=== PATIENT | female | born 1945 | race African-American/Black ===

== ENCOUNTER 2017-11-27 01:54 | Emergency (ER) | payer OTHER ==
[~2017-11-27] VITALS: Ht 157.5 cm; Wt 77.0 kg
[2017-11-27 07:25] VITALS: BP 120/70
== END 2017-11-27 07:26 | disposition home or self-care (01) ==
LOC: ER 01:54
DX: E11.649 Type 2 diabetes mellitus with hypoglycemia without coma (principal); I10 Essential (primary) hypertension; H40.9 Unspecified glaucoma; Z88.0 Allergy status to penicillin; Z79.84 Long term (current) use of oral hypoglycemic drugs
CPT/HCPCS: 36415; 82947; 82962; 99284

== ENCOUNTER 2017-12-06 06:05 | Observation (INO) | payer OTHER ==
[~2017-12-06] VITALS: Ht 157.5 cm; Wt 76.5 kg
[2017-12-06] MEDS ORDERED: DEXTROSE 50% WATER 50ML SYRINGE IV ONE (07:00)
[2017-12-06] MEDS ORDERED: DEXT 5%/0.45% NACL 1000ML 1,000 ML IV ONE (07:00)
[2017-12-06 07:51] LABS: BASOPHILS % 0.4 % (0.0-2.0); EOSINOPHILS % 0.6 % (0.0-5.0); HEMATOCRIT. 34.6 % (36.0-48.0); HEMOGLOBIN. 11.2 g/dL (12.0-16.0); MEAN CORPUSCULAR HEMOGLOBIN 28.3 pg (28.0-32.0); MEAN CORPUSCULAR VOLUME 87.5 fL (81.0-99.0); MEAN PLATELET VOLUME 7.6 fl (7.4-10.4); MONOCYTES % 7.5 % (2.0-8.0); NEUTROPHILS % 74.5 % (40.0-76.0); PLATELET 204 x1000/uL (130-400); RED BLOOD CELL COUNT 3.95 mill/uL (4.2-5.4); RED CELL DISTRIBUTION WIDTH 13.8 % (11.6-14.6)
[2017-12-06 07:54] LABS: PROTHROMBIN TIME 10.5 sec (9.4-11.6)
[2017-12-06 08:47] LABS: CLARITY URINE CLEAR (CLEAR); COLOR URINE YELLOW (YELLOW); KETONES URINE NEGATIVE (NEGATIVE); LEUKOCYTE ESTERASE URINE NEGATIVE (NEGATIVE); NITRITE URINE NEGATIVE (NEGATIVE); OCCULT BLOOD URINE 1+ (NEGATIVE); PROTEIN URINE 1+ (NEGATIVE); SPECIFIC GRAVITY URINE 1.009 (1.005-1.030); UROBILINOGEN URINE 0.2 E.U./dL (0.2-1.0)
[2017-12-06 09:26] LABS: *AMPHETAMINES SCREEN URINE NEGATIVE (NEGATIVE); *BARBITURATES SCREEN URINE NEGATIVE (NEGATIVE); *BENZODIAZEPINES SCREEN URINE NEGATIVE (NEGATIVE); *COCAINE SCREEN URINE NEGATIVE (NEGATIVE); METHADONE URINE SCREEN NEGATIVE (NEGATIVE); OPIATES URINE SCREEN NEGATIVE (NEGATIVE)
[2017-12-06 09:27] LABS: CANNABINOID URINE SCREEN NEGATIVE (NEGATIVE); PHENCYCLIDINE URINE SCREEN NEGATIVE (NEGATIVE)
[2017-12-06 16:00] VITALS: BP 145/52
[2017-12-06 17:35] VITALS: BP 145/52
[2017-12-06] MEDS ORDERED: LINA5TAB MT (17:45)
[2017-12-06] MEDS ORDERED: ESTR0.3T3 MT (17:45)
[2017-12-06] MEDS ORDERED: GLIM4TAB2 MT (17:45)
[2017-12-06] MEDS ORDERED: TIMO15DR12 LEFTEYE (17:47)
[2017-12-06] MEDS ORDERED: LATA2.5D2 LEFTEYE (17:50)
[2017-12-06] MEDS ORDERED: CLONIDINE 0.1MG TABLET PO PRN (18:45)
[2017-12-06] MEDS ORDERED: ACETAMINOPHEN 325MG TABLET PO PRN (18:45)
[2017-12-06] MEDS ORDERED: ONDANSETRON HCL 4MG/2ML VIAL IV PRN (18:45)
[2017-12-06] MEDS ORDERED: HYDROCODONE/ACETAMINOPHEN 5/325MG TABLET PO PRN (18:45)
[2017-12-06] MEDS ORDERED: IPRATROPIUM/ALBUTEROL 0.5-3(2.5)MG/3ML NEB INH PRN (18:45)
[2017-12-06] MEDS ORDERED: SODIUM CHLORIDE 0.9% 1,000 ML IV SCH (19:15)
[2017-12-06 20:00] VITALS: BP 162/57
[2017-12-06] MEDS ORDERED: LATANOPROST 0.005% OPHTH DROPS 2.5ML LEFTEYE SCH (21:00)
[2017-12-06 21:44] LABS: CREATINE KINASE MB FRACTION 2.8 ng/mL (0.5-3.6)
[2017-12-07] VITALS: BP 137/57
[2017-12-07 04:00] VITALS: BP 135/47
[2017-12-07 07:22] LABS: BASOPHILS % 0.5 % (0.0-2.0); HEMATOCRIT. 33.5 % (36.0-48.0); HEMOGLOBIN. 11.2 g/dL (12.0-16.0); LYMPHOCYTES % 27.1 % (20.0-50.0); MEAN CORPUSCULAR VOLUME 86.5 fL (81.0-99.0); MEAN PLATELET VOLUME 7.7 fl (7.4-10.4); MONOCYTES % 7.7 % (2.0-8.0); NEUTROPHILS % 63.7 % (40.0-76.0); PLATELET 220 x1000/uL (130-400); RED BLOOD CELL COUNT 3.87 mill/uL (4.2-5.4); RED CELL DISTRIBUTION WIDTH 13.7 % (11.6-14.6)
[2017-12-07 07:38] LABS: CHLORIDE 110 mEq/L (98-107)
[2017-12-07 07:45] LABS: HDL CHOLESTEROL 71 mg/dL (40-59); LDL CHOLESTEROL 60 mg/dL (5-100)
[2017-12-07 07:47] LABS: T4 FREE 1.22 ng/dL (0.76-1.46)
[2017-12-07 08:00] VITALS: BP 138/50
[2017-12-07] MEDS ORDERED: TIMOLOL MALEATE 0.5% OPHTH DROPS 5ML LEFTEYE SCH (09:00)
[2017-12-07 12:00] VITALS: BP 166/67
[2017-12-07 15:48] VITALS: BP 166/67
[2017-12-07 16:00] VITALS: BP 154/58
== END 2017-12-07 16:45 | disposition home or self-care (01) ==
LOC: ER 06:05 → 5WST 07:53 → INTOOBSV 07:53 → EDBEDREQTM 07:56 → EDBEDREQ 07:56 → ENRESERV 15:40
PROVIDERS: ADMIT Internal Medicine; ATTEND Internal Medicine
DX: E16.2 Hypoglycemia, unspecified (principal); D64.9 Anemia, unspecified; E03.9 Hypothyroidism, unspecified; E11.649 Type 2 diabetes mellitus with hypoglycemia without coma; E11.21 Type 2 diabetes mellitus with diabetic nephropathy; H40.9 Unspecified glaucoma; I10 Essential (primary) hypertension; Z87.891 Personal history of nicotine dependence; M19.90 Unspecified osteoarthritis, unspecified site; N17.9 Acute kidney failure, unspecified
CPT/HCPCS: 36415; 70450; 71045; 80048; 80053; 80061; 80305; 81003; 82550; 82553; 82947; 82962; 83036; 83605; 83880; 84439; 84443; 84484; 85025; 85610; 93005; 93306; 93970; 96361; 96374; 99285; G0378; J3490; J7030; 96376

== ENCOUNTER 2021-08-23 19:25 | Inpatient (IN) | payer BC, MEDICARE, OTHER ==
[~2021-08-23] VITALS: Ht 165.1 cm; Wt 81.2 kg
[~2021-08-23 19:25] MED LIST: ESTR0.3T3 MT; GLIM4TAB36 MT; LATA2.5D14 LEFTEYE; TIMO15DR12 LEFTEYE
[2021-08-23 20:04] LABS: BASOPHILS % 0.6 % (0.0-2.0); EOSINOPHILS % 0.2 % (0.0-5.0); HEMATOCRIT. 38.5 % (36.0-48.0); HEMOGLOBIN. 12.7 g/dL (12.0-16.0); LYMPHOCYTES % 17.4 % (20.0-50.0); MEAN CORPUSCULAR HEMOGLOBIN 29.2 pg (28.0-32.0); MEAN CORPUSCULAR VOLUME 88.2 fL (81.0-99.0); MONOCYTES % 13.3 % (2.0-8.0); NEUTROPHILS % 68.5 % (40.0-76.0); PLATELET 150 x1000/uL (130-400); RED BLOOD CELL COUNT 4.36 mill/uL (4.2-5.4); RED CELL DISTRIBUTION WIDTH 14.1 % (11.6-14.6)
[2021-08-23 20:08] LABS: CHLORIDE 103 mEq/L (98-107)
[2021-08-23] MEDS ORDERED: ASPIRIN 325MG TABLET PO ONE (21:00)
[2021-08-23] MEDS ORDERED: SODIUM CHLORIDE 0.9% 500 ML IV ONE (22:00)
[2021-08-24] MEDS ORDERED: GUAIFENESIN 200MG/10ML SUGAR FREE UDC PO PRN (10:15)
[2021-08-24] MEDS ORDERED: DOCUSATE SODIUM 100MG CAPSULE PO PRN (10:15)
[2021-08-24] MEDS ORDERED: DIPHENHYDRAMINE 50MG/ML VIAL IV PRN (10:15)
[2021-08-24] MEDS ORDERED: LORAZEPAM 0.5MG TABLET PO PRN (10:15)
[2021-08-24] MEDS ORDERED: ONDANSETRON HCL 4MG/2ML INJ IV PRN (10:15)
[2021-08-24] MEDS ORDERED: CLONIDINE 0.1MG TABLET PO PRN (10:15)
[2021-08-24] MEDS ORDERED: IPRATROPIUM/ALBUTEROL 0.5-3(2.5)MG/3ML NEB NEB PRN (10:15)
[2021-08-24] MEDS ORDERED: ACETAMINOPHEN 650MG SUPP PR PRN (10:15)
[2021-08-24] MEDS ORDERED: HYDROCODONE/ACETAMINOPHEN 5/325MG TABLET PO PRN (10:15)
[2021-08-24] MEDS ORDERED: NA PHOS,M-B/NA PHOS,DI-BA ENEMA 118ML PR PRN (10:15)
[2021-08-24] MEDS ORDERED: MAGNESIUM/ALUMINUM HYDROXIDE/SIMETHICONE 30ML UDC PO PRN (10:15)
[2021-08-24] MEDS ORDERED: LEVOFLOXACIN 500MG PREMIX 100 ML IV SCH (10:15)
[2021-08-24] MEDS ORDERED: DEXTROSE 50% WATER 50ML SYRINGE IV PRN (10:15)
[2021-08-24] MEDS ORDERED: ACETAMINOPHEN 325MG TABLET PO PRN (10:15)
[2021-08-24] MEDS ORDERED: LEVOFLOXACIN 750MG PREMIX 150 ML IV NR (11:00)
[2021-08-24] MEDS ORDERED: NALOXONE HCL 0.4MG/ML VIAL IV PRN (11:00)
[2021-08-24 11:11] LABS: BG BASE EXCESS -3.4 mmol/L (-2.0-2.0); BG CARBOXYHEMOGLOBIN 0.1 % (0.5-1.5); BG DEOXYHEMOGLOBIN 4.9 % (0.0-5.0); BG HCO3 ACT 19.8 mmol/L (22.0-26.0); BG METHEMOGLOBIN 0.3 % (0.0-1.5); BG OXYGEN SATURATION 95.1 % (92.0-98.5); BG OXYHEMOGLOBIN 94.7 % (94.0-97.0); BG PH 7.424 (7.350-7.450); BG PO2 76.2 mmHg (75.0-100.0); BG SAMPLE SITE LEFT RADIAL; BG TOTAL HEMOGLOBIN 14.2 g/dL (12.0-18.0); BG VENT MODE ROOM AIR
[2021-08-24 11:15] LABS: HEMATOCRIT. 38.9 % (36.0-48.0); HEMOGLOBIN. 13.2 g/dL (12.0-16.0); MEAN CORPUSCULAR HEMOGLOBIN 29.9 pg (28.0-32.0); MEAN CORPUSCULAR VOLUME 88.2 fL (81.0-99.0); RED BLOOD CELL COUNT 4.41 mill/uL (4.2-5.4); RED CELL DISTRIBUTION WIDTH 14.2 % (11.6-14.6)
[2021-08-24] MEDS: DEXAMETHASONE 10 MG/ML VIAL IV SCH (11:18)
[2021-08-24] MEDS: SODIUM CHLORIDE 0.9% 1,000 ML IV SCH (11:18)
[2021-08-24 11:25] LABS: CLARITY URINE CLEAR (CLEAR); COLOR URINE YELLOW (YELLOW); KETONES URINE NEGATIVE (NEGATIVE); LEUKOCYTE ESTERASE URINE NEGATIVE (NEGATIVE); NITRITE URINE POSITIVE (NEGATIVE); OCCULT BLOOD URINE 3+ (NEGATIVE); PH URINE 5.5 (4.5-8.0); PROTEIN URINE 3+ (NEGATIVE); SPECIFIC GRAVITY URINE 1.012 (1.005-1.030); UROBILINOGEN URINE 0.2 E.U./dL (0.2-1.0)
[2021-08-24] MEDS: BLOOD SUGAR DIAGNOSTIC STRIP TEST SCH ×3 (11:39→22:16)
[2021-08-24 11:48] LABS: *AMPHETAMINES SCREEN URINE NEGATIVE (NEGATIVE)
[2021-08-24 11:49] LABS: *BARBITURATES SCREEN URINE NEGATIVE (NEGATIVE); *BENZODIAZEPINES SCREEN URINE NEGATIVE (NEGATIVE); *COCAINE SCREEN URINE NEGATIVE (NEGATIVE); METHADONE URINE SCREEN NEGATIVE (NEGATIVE); OPIATES URINE SCREEN NEGATIVE (NEGATIVE); PHENCYCLIDINE URINE SCREEN NEGATIVE (NEGATIVE)
[2021-08-24 11:50] LABS: CANNABINOID URINE SCREEN NEGATIVE (NEGATIVE)
[2021-08-24] MEDS: INSULIN LISPRO 100 UNITS/ML SUBCUT SCH ×3 (12:00→22:15)
[2021-08-24 12:03] LABS: INR 0.9; PROTHROMBIN TIME 10.2 sec (9.6-11.0)
[2021-08-24] MEDS: ENOXAPARIN 30MG/0.3ML SYR SUBCUT SCH (12:32)
[2021-08-24] MEDS: ALBUTEROL 6.7GM HFA INHALER ORI SCH ×2 (12:58→18:27)
[2021-08-24 13:37] LABS: PLATELET 180 x1000/uL (130-400)
[2021-08-24 13:44] LABS: PLATELET ESTIMATE NORMAL
[2021-08-24 17:48] LABS: CREATINE KINASE MB FRACTION 14.7 ng/mL (0.5-3.6)
[2021-08-24] MEDS ORDERED: SODIUM CHLORIDE 0.9% 500 ML IV ONE (22:00)
[2021-08-24] MEDS: FAMOTIDINE 20MG TABLET PO SCH (22:15)
[2021-08-25] MEDS: SODIUM CHLORIDE 0.9% 1,000 ML IV SCH ×2 (03:10→11:47)
[2021-08-25 06:11] LABS: CHLORIDE 113 mEq/L (98-107)
[2021-08-25 06:21] LABS: LDL CHOLESTEROL 67 mg/dL (5-100)
[2021-08-25 06:23] LABS: HDL CHOLESTEROL 37 mg/dL (40-59)
[2021-08-25] MEDS: BLOOD SUGAR DIAGNOSTIC STRIP TEST SCH ×4 (06:30→21:00)
[2021-08-25] MEDS: INSULIN LISPRO 100 UNITS/ML SUBCUT SCH ×4 (07:00→23:05)
[2021-08-25 07:07] LABS: BASOPHILS % 0.2 % (0.0-2.0); HEMATOCRIT. 33.8 % (36.0-48.0); HEMOGLOBIN. 11.2 g/dL (12.0-16.0); LYMPHOCYTES % 8.9 % (20.0-50.0); MEAN CORPUSCULAR HEMOGLOBIN 29.3 pg (28.0-32.0); MEAN CORPUSCULAR VOLUME 88.1 fL (81.0-99.0); MEAN PLATELET VOLUME 8.1 fl (7.4-10.4); MONOCYTES % 9.1 % (2.0-8.0); NEUTROPHILS % 81.8 % (40.0-76.0); PLATELET 170 x1000/uL (130-400); RED BLOOD CELL COUNT 3.84 mill/uL (4.2-5.4); RED CELL DISTRIBUTION WIDTH 14.1 % (11.6-14.6)
[2021-08-25] MEDS: DEXAMETHASONE 10 MG/ML VIAL IV SCH (08:46)
[2021-08-25] MEDS: ASPIRIN 81MG EC TABLET PO SCH (08:47)
[2021-08-25] MEDS: ALBUTEROL 6.7GM HFA INHALER ORI SCH ×5 (08:59→17:19)
[2021-08-25 11:07] VITALS: BP 138/58
[2021-08-25] MEDS: ENOXAPARIN 30MG/0.3ML SYR SUBCUT SCH (12:07)
[2021-08-25 12:30] VITALS: BP 138/58
[2021-08-25 16:00] VITALS: BP 140/56
[2021-08-25 20:00] VITALS: BP 134/74
[2021-08-25] MEDS: FAMOTIDINE 20MG TABLET PO SCH (23:03)
[2021-08-26 04:00] VITALS: BP 146/56
[2021-08-26] MEDS: BLOOD SUGAR DIAGNOSTIC STRIP TEST SCH ×2 (06:31→12:20)
[2021-08-26] MEDS: INSULIN LISPRO 100 UNITS/ML SUBCUT SCH ×2 (06:38→12:20)
[2021-08-26 08:00] VITALS: BP 135/58
[2021-08-26] MEDS: DEXAMETHASONE 10 MG/ML VIAL IV SCH (08:56)
[2021-08-26] MEDS: ASPIRIN 81MG EC TABLET PO SCH (08:56)
[2021-08-26 09:06] LABS: HEMATOCRIT. 33.8 % (36.0-48.0); HEMOGLOBIN. 11.3 g/dL (12.0-16.0); MEAN CORPUSCULAR HEMOGLOBIN 29.4 pg (28.0-32.0); MEAN CORPUSCULAR VOLUME 88.2 fL (81.0-99.0); MEAN PLATELET VOLUME 7.8 fl (7.4-10.4); PLATELET 195 x1000/uL (130-400); RED BLOOD CELL COUNT 3.83 mill/uL (4.2-5.4)
[2021-08-26] MEDS ORDERED: LEVOFLOXACIN 500MG PREMIX 100 ML IV SCH (11:00)
[2021-08-26 12:00] VITALS: BP 132/65
[2021-08-26] MEDS: ENOXAPARIN 30MG/0.3ML SYR SUBCUT SCH (12:19)
[2021-08-26] MEDS: ALBUTEROL 6.7GM HFA INHALER ORI SCH ×2 (12:20→12:22)
[2021-08-26] MEDS: SODIUM CHLORIDE 0.9% 1,000 ML IV SCH (12:21)
[2021-08-26 14:17] VITALS: BP 132/65
[2021-08-26] MEDS ORDERED: METOPROLOL TARTRATE 25MG TABLET PO SCH (21:00)
[2021-08-27 08:38] LABS: PLATELET ESTIMATE NORMAL
[2021-08-27] MEDS ORDERED: LEVOFLOXACIN 750MG PREMIX 150 ML IV SCH (22:00)
== END 2021-08-26 16:00 | disposition home or self-care (01) | DRG 177 ==
LOC: ER 19:25 → MICUSO 21:44 → EDBEDREQ 21:44 → 7EST 08-25 11:30
PROVIDERS: ADMIT Internal Medicine; ATTEND Internal Medicine
DX: U07.1 COVID-19 (principal); G93.41 Metabolic encephalopathy; J12.82 Pneumonia due to coronavirus disease 2019; I21.4 Non-ST elevation (NSTEMI) myocardial infarction; N39.0 Urinary tract infection, site not specified; N17.9 Acute kidney failure, unspecified; I13.0 Hypertensive heart and chronic kidney disease with heart failure and stage 1 through stage 4 chronic kidney disease, or unspecified chronic kidney disease; M62.82 Rhabdomyolysis; I50.32 Chronic diastolic (congestive) heart failure; E11.22 Type 2 diabetes mellitus with diabetic chronic kidney disease; N18.9 Chronic kidney disease, unspecified; R62.7 Adult failure to thrive; I44.0 Atrioventricular block, first degree; Z96.659 Presence of unspecified artificial knee joint; Z96.641 Presence of right artificial hip joint; Z68.29 Body mass index [BMI] 29.0-29.9, adult
CPT/HCPCS: 36415; 36600; 71045; 72170; 76770; 80048; 80053; 80061; 80305; 81003; 82375; 82550; 82553; 82728; 82805; 82962; 83605; 83615; 83735; 83880; 84145; 84443; 84484; 85025; 86140; 87426; 93005; 93970; 97162; 97535; 99291; J1100; J1650; J1815; J1956; J7030; J7040

== ENCOUNTER 2022-03-31 20:57 | Inpatient (IN) | payer BC, MEDICARE ==
[~2022-03-31] VITALS: Ht 160 cm; Wt 99.8 kg
[2022-03-31] MEDS ORDERED: KETOROLAC 30MG/ML VIAL IV STA (22:01)
[2022-03-31] MEDS ORDERED: SODIUM CHLORIDE 0.9% 1,000 ML IV ONE (22:15)
[2022-03-31 23:27] LABS: HEMATOCRIT. 35.1 % (36.0-48.0); HEMOGLOBIN. 11.5 g/dL (12.0-16.0); MEAN CORPUSCULAR VOLUME 88.5 fL (81.0-99.0); MEAN PLATELET VOLUME 7.9 fl (7.4-10.4); PLATELET 150 x1000/uL (130-400); RED BLOOD CELL COUNT 3.97 mill/uL (4.2-5.4); RED CELL DISTRIBUTION WIDTH 14.4 % (11.6-14.6)
[2022-03-31 23:34] LABS: CHLORIDE 105 mEq/L (98-107)
[2022-04-01] MEDS ORDERED: KETOROLAC 30MG/ML VIAL IV NR (01:15)
[2022-04-01 03:19] LABS: PLATELET ESTIMATE NORMAL
[2022-04-01] MEDS ORDERED: ONDANSETRON HCL 4MG/2ML INJ IV PRN (08:30)
[2022-04-01] MEDS ORDERED: HYDROCODONE/ACETAMINOPHEN 5/325MG TABLET PO PRN (08:30)
[2022-04-01] MEDS ORDERED: DEXTROSE 50% WATER 50ML SYRINGE IV PRN (08:30)
[2022-04-01] MEDS ORDERED: NALOXONE HCL 0.4MG/ML VIAL IV PRN (09:15)
[2022-04-01] MEDS: BLOOD SUGAR DIAGNOSTIC STRIP TEST SCH ×4 (09:59→21:00)
[2022-04-01 12:52] LABS: CLARITY URINE TURBID (CLEAR); COLOR URINE YELLOW (YELLOW); KETONES URINE NEGATIVE (NEGATIVE); LEUKOCYTE ESTERASE URINE 3+ (NEGATIVE); NITRITE URINE NEGATIVE (NEGATIVE); OCCULT BLOOD URINE 3+ (NEGATIVE); PH URINE 5.5 (4.5-8.0); PROTEIN URINE 2+ (NEGATIVE); SPECIFIC GRAVITY URINE 1.013 (1.005-1.030); UROBILINOGEN URINE 0.2 E.U./dL (0.2-1.0)
[2022-04-01] MEDS: ASPIRIN 81MG TABLET PO SCH (13:01)
[2022-04-01] MEDS: INSULIN LISPRO 100 UNITS/ML SUBCUT SCH ×3 (13:02→21:00)
[2022-04-01 16:00] VITALS: BP 96/60
[2022-04-01 16:43] VITALS: BP 96/60
[2022-04-01] MEDS ORDERED: METO100T16 PO (16:59)
[2022-04-01] MEDS ORDERED: ALD2525 MT (16:59)
[2022-04-01] MEDS ORDERED: ASPI-1497 PO (16:59)
[2022-04-01] MEDS ORDERED: LEVO125T8 PO (16:59)
[2022-04-01] MEDS ORDERED: ATOR20TA MT (16:59)
[2022-04-01] MEDS ORDERED: AMLO10TA4 MT (16:59)
[2022-04-01 20:00] VITALS: BP 118/51
[2022-04-01] MEDS: CEFTRIAXONE 1,000 MG in DEXTROSE 5% WATER 50 ML IV SCH (22:00)
[2022-04-02 05:05] VITALS: BP 119/58
[2022-04-02 07:09] LABS: BASOPHILS % 0.5 % (0.0-2.0); EOSINOPHILS % 0.5 % (0.0-5.0); HEMATOCRIT. 31.1 % (36.0-48.0); HEMOGLOBIN. 10.3 g/dL (12.0-16.0); LYMPHOCYTES % 10.8 % (20.0-50.0); MEAN CORPUSCULAR HEMOGLOBIN 29.3 pg (28.0-32.0); MEAN CORPUSCULAR VOLUME 88.1 fL (81.0-99.0); MEAN PLATELET VOLUME 8.5 fl (7.4-10.4); MONOCYTES % 13.6 % (2.0-8.0); NEUTROPHILS % 74.6 % (40.0-76.0); PLATELET 161 x1000/uL (130-400); RED BLOOD CELL COUNT 3.53 mill/uL (4.2-5.4); RED CELL DISTRIBUTION WIDTH 14.5 % (11.6-14.6)
[2022-04-02] MEDS: INSULIN LISPRO 100 UNITS/ML SUBCUT SCH ×4 (07:57→20:40)
[2022-04-02] MEDS: BLOOD SUGAR DIAGNOSTIC STRIP TEST SCH ×4 (07:57→20:07)
[2022-04-02 08:00] VITALS: BP 135/57
[2022-04-02] MEDS ORDERED: ASPIRIN 81MG EC TABLET PO SCH (09:00)
[2022-04-02] MEDS: ASPIRIN 81MG TABLET PO SCH (09:08)
[2022-04-02] MEDS: AMLODIPINE 5MG TABLET PO SCH (09:08)
[2022-04-02 12:00] VITALS: BP 128/76
[2022-04-02] MEDS: SODIUM CHLORIDE 0.9% 1,000 ML IV SCH (12:47)
[2022-04-02 16:00] VITALS: BP 118/50
[2022-04-02 20:00] VITALS: BP 134/52
[2022-04-02] MEDS: CEFTRIAXONE 1,000 MG in DEXTROSE 5% WATER 50 ML IV SCH (20:37)
[2022-04-03] VITALS: BP 130/50
[2022-04-03 04:00] VITALS: BP 144/61
[2022-04-03] MEDS: BLOOD SUGAR DIAGNOSTIC STRIP TEST SCH ×4 (07:45→20:05)
[2022-04-03] MEDS ORDERED: REGADENOSON 0.4 MG/5 ML IV NR (07:45)
[2022-04-03] MEDS: INSULIN LISPRO 100 UNITS/ML SUBCUT SCH ×4 (07:45→20:06)
[2022-04-03 08:00] VITALS: BP_SYST 118; BP_SYST 119; BP_SYST 121; BP_DIAS 54; BP_DIAS 56; BP_DIAS 58
[2022-04-03 08:05] LABS: BASOPHILS % 0.5 % (0.0-2.0); EOSINOPHILS % 0.6 % (0.0-5.0); HEMATOCRIT. 30.4 % (36.0-48.0); HEMOGLOBIN. 10.1 g/dL (12.0-16.0); LYMPHOCYTES % 12.8 % (20.0-50.0); MEAN CORPUSCULAR HEMOGLOBIN 29.3 pg (28.0-32.0); MEAN CORPUSCULAR VOLUME 88.6 fL (81.0-99.0); MEAN PLATELET VOLUME 8.8 fl (7.4-10.4); MONOCYTES % 11.8 % (2.0-8.0); NEUTROPHILS % 74.3 % (40.0-76.0); PLATELET 160 x1000/uL (130-400); RED BLOOD CELL COUNT 3.43 mill/uL (4.2-5.4); RED CELL DISTRIBUTION WIDTH 14.6 % (11.6-14.6)
[2022-04-03 08:12] LABS: CHLORIDE 106 mEq/L (98-107)
[2022-04-03 08:24] LABS: PHOSPHORUS 3.3 mg/dL (2.5-4.9)
[2022-04-03] MEDS: LEVOTHYROXINE SODIUM 125MCG TABLET PO SCH (08:30)
[2022-04-03] MEDS: SODIUM CHLORIDE 0.9% 1,000 ML IV SCH (08:30)
[2022-04-03] MEDS: AMLODIPINE 5MG TABLET PO SCH (08:30)
[2022-04-03] MEDS: ASPIRIN 81MG EC TABLET PO SCH (08:30)
[2022-04-03 12:00] VITALS: BP 136/53
[2022-04-03 16:00] VITALS: BP 132/52
[2022-04-03 20:00] VITALS: BP 136/55
[2022-04-03] MEDS: CEFTRIAXONE 1,000 MG in DEXTROSE 5% WATER 50 ML IV SCH (21:05)
[2022-04-04] VITALS: BP 134/58
[2022-04-04 04:00] VITALS: BP 144/57
[2022-04-04] MEDS: SODIUM CHLORIDE 0.9% 1,000 ML IV SCH (05:22)
[2022-04-04 06:20] LABS: BASOPHILS % 0.6 % (0.0-2.0); EOSINOPHILS % 0.4 % (0.0-5.0); HEMATOCRIT. 30.9 % (36.0-48.0); HEMOGLOBIN. 10.4 g/dL (12.0-16.0); LYMPHOCYTES % 16.2 % (20.0-50.0); MEAN CORPUSCULAR HEMOGLOBIN 29.3 pg (28.0-32.0); MEAN CORPUSCULAR VOLUME 87.5 fL (81.0-99.0); MEAN PLATELET VOLUME 8.6 fl (7.4-10.4); MONOCYTES % 8.6 % (2.0-8.0); NEUTROPHILS % 74.2 % (40.0-76.0); PLATELET 180 x1000/uL (130-400); RED BLOOD CELL COUNT 3.53 mill/uL (4.2-5.4)
[2022-04-04] MEDS: BLOOD SUGAR DIAGNOSTIC STRIP TEST SCH ×4 (07:40→21:20)
[2022-04-04] MEDS: LEVOTHYROXINE SODIUM 125MCG TABLET PO SCH (07:40)
[2022-04-04 08:00] VITALS: BP 130/62
[2022-04-04] MEDS: INSULIN LISPRO 100 UNITS/ML SUBCUT SCH ×4 (08:05→21:00)
[2022-04-04] MEDS: AMLODIPINE 5MG TABLET PO SCH (09:00)
[2022-04-04] MEDS: ASPIRIN 81MG EC TABLET PO SCH (09:00)
[2022-04-04] MEDS: SODIUM CHLORIDE 0.45% 1,000 ML IV SCH (10:45)
[2022-04-04 12:00] VITALS: BP_SYST 131; BP_SYST 140; BP_SYST 146; BP_DIAS 58; BP_DIAS 59
[2022-04-04] MEDS ORDERED: REGADENOSON 0.4 MG/5 ML IV ONE (12:24)
[2022-04-04 16:00] VITALS: BP 143/56
[2022-04-04 20:00] VITALS: BP 145/60
[2022-04-04] MEDS: CEFTRIAXONE 1,000 MG in DEXTROSE 5% WATER 50 ML IV SCH (21:22)
[2022-04-04] MEDS: RISPERIDONE 0.5MG TABLET PO SCH (21:22)
[2022-04-05] VITALS: BP 136/53
[2022-04-05 04:00] VITALS: BP 125/48
[2022-04-05] MEDS: SODIUM CHLORIDE 0.45% 1,000 ML IV SCH ×2 (04:44→12:51)
[2022-04-05] MEDS: BLOOD SUGAR DIAGNOSTIC STRIP TEST SCH ×4 (05:43→20:42)
[2022-04-05] MEDS: INSULIN LISPRO 100 UNITS/ML SUBCUT SCH ×4 (05:43→20:42)
[2022-04-05 08:00] VITALS: BP_SYST 132; BP_SYST 133; BP_DIAS 52; BP_DIAS 65
[2022-04-05] MEDS: RISPERIDONE 0.5MG TABLET PO SCH ×2 (08:12→21:21)
[2022-04-05] MEDS: LEVOTHYROXINE SODIUM 125MCG TABLET PO SCH (08:12)
[2022-04-05] MEDS: ASPIRIN 81MG EC TABLET PO SCH (08:12)
[2022-04-05] MEDS: AMLODIPINE 5MG TABLET PO SCH (08:13)
[2022-04-05 12:00] VITALS: BP 130/51
[2022-04-05 16:00] VITALS: BP 139/57
[2022-04-05 16:00] LABS: CHLORIDE 106 mEq/L (98-107)
[2022-04-05 20:00] VITALS: BP 119/56
[2022-04-05] MEDS: CEFTRIAXONE 1,000 MG in DEXTROSE 5% WATER 50 ML IV SCH (21:22)
[2022-04-06] VITALS: BP 136/58
[2022-04-06] MEDS: SODIUM CHLORIDE 0.45% 1,000 ML IV SCH ×2 (03:06→16:14)
[2022-04-06 04:00] VITALS: BP 132/60
[2022-04-06] MEDS: INSULIN LISPRO 100 UNITS/ML SUBCUT SCH ×5 (05:51→21:39)
[2022-04-06] MEDS: BLOOD SUGAR DIAGNOSTIC STRIP TEST SCH ×4 (05:51→21:17)
[2022-04-06 08:00] VITALS: BP 138/54
[2022-04-06] MEDS: ASPIRIN 81MG EC TABLET PO SCH (08:49)
[2022-04-06] MEDS: RISPERIDONE 0.5MG TABLET PO SCH ×3 (08:49→21:38)
[2022-04-06] MEDS: LEVOTHYROXINE SODIUM 125MCG TABLET PO SCH (08:50)
[2022-04-06] MEDS: AMLODIPINE 5MG TABLET PO SCH (08:50)
[2022-04-06 12:00] VITALS: BP 135/55
[2022-04-06 16:00] VITALS: BP 141/65
[2022-04-06 20:00] VITALS: BP 135/75
[2022-04-06] MEDS: CEFTRIAXONE 1,000 MG in DEXTROSE 5% WATER 50 ML IV SCH (21:38)
[2022-04-07] VITALS: BP 134/53
[2022-04-07 04:00] VITALS: BP 146/59
[2022-04-07] MEDS: SODIUM CHLORIDE 0.45% 1,000 ML IV SCH ×2 (05:43→13:05)
[2022-04-07] MEDS: BLOOD SUGAR DIAGNOSTIC STRIP TEST SCH ×4 (07:17→21:42)
[2022-04-07] MEDS: INSULIN LISPRO 100 UNITS/ML SUBCUT SCH ×4 (07:18→21:00)
[2022-04-07 08:10] LABS: HEMOGLOBIN. 10.1 g/dL (12.0-16.0); MEAN CORPUSCULAR VOLUME 88.6 fL (81.0-99.0); MEAN PLATELET VOLUME 8.2 fl (7.4-10.4); PLATELET 270 x1000/uL (130-400); RED CELL DISTRIBUTION WIDTH 14.3 % (11.6-14.6)
[2022-04-07 08:21] LABS: CHLORIDE 103 mEq/L (98-107)
[2022-04-07 09:36] LABS: PLATELET ESTIMATE NORMAL
[2022-04-07] MEDS: LEVOTHYROXINE SODIUM 125MCG TABLET PO SCH (09:56)
[2022-04-07] MEDS: ASPIRIN 81MG EC TABLET PO SCH (09:57)
[2022-04-07] MEDS: RISPERIDONE 0.5MG TABLET PO SCH ×2 (09:58→21:33)
[2022-04-07] MEDS: AMLODIPINE 5MG TABLET PO SCH (09:58)
[2022-04-07] MEDS ORDERED: POTASSIUM CHLORIDE 10MEQ TABLET SR PO NR (11:00)
[2022-04-07 12:00] VITALS: BP 153/83
[2022-04-07 16:00] VITALS: BP 106/67
[2022-04-07 20:00] VITALS: BP 131/55
[2022-04-08] VITALS: BP 114/54
[2022-04-08 04:00] VITALS: BP 114/54
[2022-04-08] MEDS: BLOOD SUGAR DIAGNOSTIC STRIP TEST SCH ×4 (06:58→21:00)
[2022-04-08 07:15] LABS: BASOPHILS % 0.5 % (0.0-2.0); EOSINOPHILS % 1.3 % (0.0-5.0); HEMATOCRIT. 29.1 % (36.0-48.0); HEMOGLOBIN. 9.5 g/dL (12.0-16.0); LYMPHOCYTES % 11.5 % (20.0-50.0); MEAN CORPUSCULAR VOLUME 89.3 fL (81.0-99.0); MEAN PLATELET VOLUME 7.7 fl (7.4-10.4); MONOCYTES % 8.1 % (2.0-8.0); NEUTROPHILS % 78.6 % (40.0-76.0); PLATELET 254 x1000/uL (130-400); RED BLOOD CELL COUNT 3.26 mill/uL (4.2-5.4); RED CELL DISTRIBUTION WIDTH 14.6 % (11.6-14.6)
[2022-04-08] MEDS: SODIUM CHLORIDE 0.45% 1,000 ML IV SCH ×2 (08:05→12:44)
[2022-04-08] MEDS: INSULIN LISPRO 100 UNITS/ML SUBCUT SCH ×5 (08:10→22:30)
[2022-04-08] MEDS: LEVOTHYROXINE SODIUM 125MCG TABLET PO SCH (08:42)
[2022-04-08] MEDS: ASPIRIN 81MG EC TABLET PO SCH (08:42)
[2022-04-08] MEDS: AMLODIPINE 5MG TABLET PO SCH (08:42)
[2022-04-08] MEDS: RISPERIDONE 0.5MG TABLET PO SCH ×2 (08:43→21:00)
[2022-04-08 08:45] VITALS: BP 117/60
[2022-04-08] MEDS ORDERED: LIDOCAINE HCL 1% 50ML VIAL (10MG/ML) ONE (10:49)
[2022-04-08 12:00] VITALS: BP 137/62
[2022-04-08 16:00] VITALS: BP 125/67
[2022-04-08 20:00] VITALS: BP 115/42
[2022-04-09] VITALS (7 sets, daily range): BP systolic 130–150; BP diastolic 45–81
[2022-04-09] MEDS: BLOOD SUGAR DIAGNOSTIC STRIP TEST SCH ×4 (07:40→21:01)
[2022-04-09] MEDS: INSULIN LISPRO 100 UNITS/ML SUBCUT SCH ×4 (08:10→21:00)
[2022-04-09] MEDS: AMLODIPINE 5MG TABLET PO SCH (09:01)
[2022-04-09] MEDS: RISPERIDONE 0.5MG TABLET PO SCH ×2 (09:01→21:01)
[2022-04-09] MEDS: LEVOTHYROXINE SODIUM 125MCG TABLET PO SCH (09:01)
[2022-04-09] MEDS: ASPIRIN 81MG EC TABLET PO SCH (09:02)
[2022-04-09] MEDS: SODIUM CHLORIDE 0.45% 1,000 ML IV SCH (10:33)
[2022-04-09 20:22] LABS: BASOPHILS % 0.7 % (0.0-2.0); EOSINOPHILS % 1.2 % (0.0-5.0); HEMATOCRIT. 25.1 % (36.0-48.0); HEMOGLOBIN. 8.2 g/dL (12.0-16.0); LYMPHOCYTES % 15.2 % (20.0-50.0); MEAN CORPUSCULAR HEMOGLOBIN 29.5 pg (28.0-32.0); MEAN CORPUSCULAR VOLUME 89.9 fL (81.0-99.0); MEAN PLATELET VOLUME 7.5 fl (7.4-10.4); MONOCYTES % 9.5 % (2.0-8.0); NEUTROPHILS % 73.4 % (40.0-76.0); PLATELET 240 x1000/uL (130-400); RED BLOOD CELL COUNT 2.79 mill/uL (4.2-5.4); RED CELL DISTRIBUTION WIDTH 14.5 % (11.6-14.6)
[2022-04-09 20:48] LABS: CREATINE KINASE 501 IU/L (26-192)
[2022-04-10] VITALS (7 sets, daily range): BP systolic 121–139; BP diastolic 52–64
[2022-04-10] MEDS: BLOOD SUGAR DIAGNOSTIC STRIP TEST SCH ×4 (06:17→21:00)
[2022-04-10] MEDS: INSULIN LISPRO 100 UNITS/ML SUBCUT SCH ×4 (07:30→21:00)
[2022-04-10] MEDS: RISPERIDONE 0.5MG TABLET PO SCH ×2 (08:46→22:42)
[2022-04-10] MEDS: ASPIRIN 81MG EC TABLET PO SCH (08:46)
[2022-04-10] MEDS: LEVOTHYROXINE SODIUM 125MCG TABLET PO SCH (08:46)
[2022-04-10] MEDS: AMLODIPINE 5MG TABLET PO SCH (08:48)
[2022-04-11] VITALS (7 sets, daily range): BP systolic 114–134; BP diastolic 46–74
[2022-04-11] MEDS: BLOOD SUGAR DIAGNOSTIC STRIP TEST SCH ×4 (07:40→21:27)
[2022-04-11] MEDS: INSULIN LISPRO 100 UNITS/ML SUBCUT SCH ×4 (08:10→21:00)
[2022-04-11] MEDS: AMLODIPINE 5MG TABLET PO SCH ×2 (09:00→09:35)
[2022-04-11] MEDS: RISPERIDONE 0.5MG TABLET PO SCH ×2 (09:34→21:28)
[2022-04-11] MEDS: ASPIRIN 81MG EC TABLET PO SCH (09:35)
[2022-04-11] MEDS: LEVOTHYROXINE SODIUM 125MCG TABLET PO SCH (09:35)
[2022-04-11 18:13] LABS: BASOPHILS % 1.1 % (0.0-2.0); EOSINOPHILS % 1.2 % (0.0-5.0); HEMATOCRIT. 25.1 % (36.0-48.0); HEMOGLOBIN. 8.3 g/dL (12.0-16.0); LYMPHOCYTES % 17.2 % (20.0-50.0); MEAN CORPUSCULAR HEMOGLOBIN 29.3 pg (28.0-32.0); MEAN CORPUSCULAR VOLUME 88.7 fL (81.0-99.0); MEAN PLATELET VOLUME 7.4 fl (7.4-10.4); MONOCYTES % 9.2 % (2.0-8.0); NEUTROPHILS % 71.3 % (40.0-76.0); PLATELET 266 x1000/uL (130-400); RED BLOOD CELL COUNT 2.83 mill/uL (4.2-5.4); RED CELL DISTRIBUTION WIDTH 14.6 % (11.6-14.6)
[2022-04-12] VITALS: BP 129/60
[2022-04-12 04:00] VITALS: BP 148/59
[2022-04-12 06:34] LABS: BASOPHILS % 0.8 % (0.0-2.0); EOSINOPHILS % 1.2 % (0.0-5.0); HEMATOCRIT. 26.2 % (36.0-48.0); HEMOGLOBIN. 8.6 g/dL (12.0-16.0); LYMPHOCYTES % 16.3 % (20.0-50.0); MEAN CORPUSCULAR HEMOGLOBIN 29.6 pg (28.0-32.0); MEAN CORPUSCULAR VOLUME 90.1 fL (81.0-99.0); MEAN PLATELET VOLUME 7.7 fl (7.4-10.4); MONOCYTES % 8.4 % (2.0-8.0); NEUTROPHILS % 73.3 % (40.0-76.0); PLATELET 268 x1000/uL (130-400); RED BLOOD CELL COUNT 2.91 mill/uL (4.2-5.4)
[2022-04-12] MEDS: LEVOTHYROXINE SODIUM 125MCG TABLET PO SCH (07:03)
[2022-04-12 08:00] VITALS: BP 114/52
[2022-04-12] MEDS: BLOOD SUGAR DIAGNOSTIC STRIP TEST SCH ×4 (08:02→20:47)
[2022-04-12] MEDS: INSULIN LISPRO 100 UNITS/ML SUBCUT SCH ×4 (08:02→20:47)
[2022-04-12] MEDS: RISPERIDONE 0.5MG TABLET PO SCH ×3 (08:27→20:57)
[2022-04-12] MEDS: AMLODIPINE 5MG TABLET PO SCH (08:27)
[2022-04-12 12:00] VITALS: BP 148/52
[2022-04-12 16:00] VITALS: BP 118/67
[2022-04-12 20:00] VITALS: BP 133/52
[2022-04-13] VITALS: BP 133/52
[2022-04-13 04:00] VITALS: BP 130/56
[2022-04-13] MEDS: LEVOTHYROXINE SODIUM 125MCG TABLET PO SCH (07:00)
[2022-04-13] MEDS: BLOOD SUGAR DIAGNOSTIC STRIP TEST SCH ×4 (07:33→21:00)
[2022-04-13] MEDS: INSULIN LISPRO 100 UNITS/ML SUBCUT SCH ×4 (07:34→21:35)
[2022-04-13] MEDS: RISPERIDONE 0.5MG TABLET PO SCH ×2 (08:46→22:24)
[2022-04-13] MEDS: AMLODIPINE 5MG TABLET PO SCH (08:46)
[2022-04-13 12:00] VITALS: BP 133/57
[2022-04-13 16:00] VITALS: BP 152/66
[2022-04-13 20:31] VITALS: BP 143/76
[2022-04-13 23:51] VITALS: BP 126/54
[2022-04-14 04:00] VITALS: BP 125/58
[2022-04-14] MEDS: BLOOD SUGAR DIAGNOSTIC STRIP TEST SCH ×4 (05:45→20:29)
[2022-04-14] MEDS: LEVOTHYROXINE SODIUM 125MCG TABLET PO SCH (06:33)
[2022-04-14] MEDS: INSULIN LISPRO 100 UNITS/ML SUBCUT SCH ×4 (06:33→20:30)
[2022-04-14 07:32] LABS: BASOPHILS % 0.8 % (0.0-2.0); EOSINOPHILS % 0.9 % (0.0-5.0); HEMATOCRIT. 25.4 % (36.0-48.0); HEMOGLOBIN. 8.2 g/dL (12.0-16.0); MEAN CORPUSCULAR HEMOGLOBIN 29.4 pg (28.0-32.0); MEAN CORPUSCULAR VOLUME 90.7 fL (81.0-99.0); MEAN PLATELET VOLUME 7.8 fl (7.4-10.4); MONOCYTES % 7.5 % (2.0-8.0); NEUTROPHILS % 75.8 % (40.0-76.0); PLATELET 274 x1000/uL (130-400); RED CELL DISTRIBUTION WIDTH 15.1 % (11.6-14.6)
[2022-04-14] MEDS: AMLODIPINE 5MG TABLET PO SCH (08:47)
[2022-04-14] MEDS: RISPERIDONE 0.5MG TABLET PO SCH (08:48)
[2022-04-14 12:00] VITALS: BP 122/89
[2022-04-14 16:00] VITALS: BP 113/58
[2022-04-14 20:00] VITALS: BP 118/47
[2022-04-14] MEDS: RISPERIDONE 1MG TABLET PO SCH (20:53)
[2022-04-14] MEDS ORDERED: EPOETIN ALFA-EPBX 4,000 UNIT/ML VIAL SUBCUT PRN (21:00)
[2022-04-15] VITALS: BP 126/51
[2022-04-15 04:00] VITALS: BP 152/78
[2022-04-15 07:20] LABS: HEMATOCRIT 24.2 % (36.0-48.0); HEMOGLOBIN 7.9 g/dL (12.0-16.0); MEAN CORPUSCULAR HEMOGLOBIN 29.6 pg (28.0-32.0); MEAN CORPUSCULAR VOLUME 90.6 fL (81.0-99.0); PLATELET 272 x1000/uL (130-400); RED BLOOD CELL COUNT 2.67 mill/uL (4.2-5.4); RED CELL DISTRIBUTION WIDTH 15.4 % (11.6-14.6)
[2022-04-15] MEDS: INSULIN LISPRO 100 UNITS/ML SUBCUT SCH ×3 (07:36→21:00)
[2022-04-15] MEDS: LEVOTHYROXINE SODIUM 125MCG TABLET PO SCH (07:36)
[2022-04-15] MEDS: BLOOD SUGAR DIAGNOSTIC STRIP TEST SCH ×4 (07:36→21:48)
[2022-04-15 08:00] VITALS: BP_SYST 143; BP_SYST 146; BP_SYST 151; BP_DIAS 53; BP_DIAS 60; BP_DIAS 69
[2022-04-15] MEDS: AMLODIPINE 5MG TABLET PO SCH (09:26)
[2022-04-15] MEDS: RISPERIDONE 1MG TABLET PO SCH ×2 (09:26→09:41)
[2022-04-15 12:00] VITALS: BP 131/69
[2022-04-15 16:00] VITALS: BP 122/69
[2022-04-15 20:00] VITALS: BP 128/52
[2022-04-16] VITALS: BP_SYST 123; BP_SYST 126; BP_DIAS 54; BP_DIAS 60
[2022-04-16 04:00] VITALS: BP 136/51
[2022-04-16] MEDS: LEVOTHYROXINE SODIUM 125MCG TABLET PO SCH (06:33)
[2022-04-16] MEDS: BLOOD SUGAR DIAGNOSTIC STRIP TEST SCH ×3 (06:43→21:00)
[2022-04-16] MEDS: INSULIN LISPRO 100 UNITS/ML SUBCUT SCH ×3 (06:43→22:35)
[2022-04-16 08:00] VITALS: BP 130/64
[2022-04-16 08:17] LABS: HEMATOCRIT 26.3 % (36.0-48.0); HEMOGLOBIN 8.7 g/dL (12.0-16.0); MEAN CORPUSCULAR HEMOGLOBIN 29.4 pg (28.0-32.0); MEAN CORPUSCULAR VOLUME 88.9 fL (81.0-99.0); PLATELET 299 x1000/uL (130-400); RED BLOOD CELL COUNT 2.96 mill/uL (4.2-5.4); RED CELL DISTRIBUTION WIDTH 15.6 % (11.6-14.6)
[2022-04-16] MEDS: RISPERIDONE 1MG TABLET PO SCH ×2 (08:38→22:35)
[2022-04-16] MEDS: AMLODIPINE 5MG TABLET PO SCH (08:39)
[2022-04-16 12:00] VITALS: BP 148/52
[2022-04-16] MEDS: LACTULOSE 20G/30ML UDC PO PRN (13:25)
[2022-04-16 16:00] VITALS: BP 112/71
[2022-04-16 20:00] VITALS: BP 143/58
[2022-04-17] VITALS: BP 134/54
[2022-04-17 04:00] VITALS: BP 127/52
[2022-04-17] MEDS: LEVOTHYROXINE SODIUM 125MCG TABLET PO SCH (06:03)
[2022-04-17] MEDS: INSULIN LISPRO 100 UNITS/ML SUBCUT SCH ×4 (06:29→21:06)
[2022-04-17] MEDS: BLOOD SUGAR DIAGNOSTIC STRIP TEST SCH ×4 (06:29→21:05)
[2022-04-17 08:00] VITALS: BP 127/55
[2022-04-17 08:06] LABS: HEMATOCRIT 23.3 % (36.0-48.0); HEMOGLOBIN 7.6 g/dL (12.0-16.0); MEAN CORPUSCULAR HEMOGLOBIN 29.1 pg (28.0-32.0); MEAN CORPUSCULAR VOLUME 89.7 fL (81.0-99.0); PLATELET 236 x1000/uL (130-400); RED CELL DISTRIBUTION WIDTH 15.4 % (11.6-14.6)
[2022-04-17] MEDS: AMLODIPINE 5MG TABLET PO SCH (09:07)
[2022-04-17] MEDS: RISPERIDONE 1MG TABLET PO SCH ×2 (09:07→21:07)
[2022-04-17 12:00] VITALS: BP 128/52
[2022-04-17 16:00] VITALS: BP 138/62
[2022-04-17 20:00] VITALS: BP 132/52
[2022-04-18] VITALS: BP 124/65
[2022-04-18 04:00] VITALS: BP 127/54
[2022-04-18 07:10] LABS: HEMATOCRIT 26.1 % (36.0-48.0); HEMOGLOBIN 8.5 g/dL (12.0-16.0); MEAN CORPUSCULAR HEMOGLOBIN 29.5 pg (28.0-32.0); MEAN CORPUSCULAR VOLUME 90.5 fL (81.0-99.0); PLATELET 267 x1000/uL (130-400); RED BLOOD CELL COUNT 2.88 mill/uL (4.2-5.4); RED CELL DISTRIBUTION WIDTH 15.8 % (11.6-14.6)
[2022-04-18] MEDS: INSULIN LISPRO 100 UNITS/ML SUBCUT SCH ×4 (07:50→21:00)
[2022-04-18 08:00] VITALS: BP 123/54
[2022-04-18] MEDS: LEVOTHYROXINE SODIUM 125MCG TABLET PO SCH (08:00)
[2022-04-18] MEDS: BLOOD SUGAR DIAGNOSTIC STRIP TEST SCH ×4 (08:12→21:00)
[2022-04-18] MEDS: AMLODIPINE 5MG TABLET PO SCH (08:41)
[2022-04-18] MEDS: RISPERIDONE 1MG TABLET PO SCH ×2 (08:41→20:55)
[2022-04-18 12:00] VITALS: BP 119/55
[2022-04-18 16:00] VITALS: BP 111/45
[2022-04-18 20:00] VITALS: BP 114/48
[2022-04-19] VITALS: BP 119/50
[2022-04-19 04:00] VITALS: BP 136/58
[2022-04-19] MEDS: LEVOTHYROXINE SODIUM 125MCG TABLET PO SCH (05:45)
[2022-04-19] MEDS: BLOOD SUGAR DIAGNOSTIC STRIP TEST SCH ×4 (06:35→21:37)
[2022-04-19 07:37] LABS: HEMATOCRIT 24.1 % (36.0-48.0); HEMOGLOBIN 7.8 g/dL (12.0-16.0); MEAN CORPUSCULAR HEMOGLOBIN 29.4 pg (28.0-32.0); MEAN CORPUSCULAR VOLUME 90.5 fL (81.0-99.0); PLATELET 216 x1000/uL (130-400); RED BLOOD CELL COUNT 2.67 mill/uL (4.2-5.4); RED CELL DISTRIBUTION WIDTH 16.1 % (11.6-14.6)
[2022-04-19] MEDS: INSULIN LISPRO 100 UNITS/ML SUBCUT SCH ×4 (07:50→21:49)
[2022-04-19 08:00] VITALS: BP 126/54
[2022-04-19] MEDS: RISPERIDONE 1MG TABLET PO SCH ×2 (09:02→21:29)
[2022-04-19] MEDS: AMLODIPINE 5MG TABLET PO SCH (09:03)
[2022-04-19 12:00] VITALS: BP 138/54
[2022-04-19 16:00] VITALS: BP 123/58
[2022-04-20] VITALS: BP 128/53
[2022-04-20 04:00] VITALS: BP 101/56
[2022-04-20] MEDS: BLOOD SUGAR DIAGNOSTIC STRIP TEST SCH ×4 (06:09→20:31)
[2022-04-20] MEDS: LEVOTHYROXINE SODIUM 125MCG TABLET PO SCH (06:21)
[2022-04-20] MEDS: INSULIN LISPRO 100 UNITS/ML SUBCUT SCH ×4 (07:50→20:47)
[2022-04-20 08:00] VITALS: BP 117/52
[2022-04-20] MEDS: RISPERIDONE 1MG TABLET PO SCH ×2 (08:35→20:30)
[2022-04-20] MEDS: AMLODIPINE 5MG TABLET PO SCH (08:35)
[2022-04-20 12:00] VITALS: BP 127/51
[2022-04-20 16:00] VITALS: BP 110/50
[2022-04-20 20:00] VITALS: BP 142/66
[2022-04-21 04:00] VITALS: BP 135/70
[2022-04-21] MEDS: BLOOD SUGAR DIAGNOSTIC STRIP TEST SCH ×4 (06:36→20:28)
[2022-04-21] MEDS: LEVOTHYROXINE SODIUM 125MCG TABLET PO SCH (06:37)
[2022-04-21] MEDS: INSULIN LISPRO 100 UNITS/ML SUBCUT SCH ×4 (07:50→21:00)
[2022-04-21 08:00] VITALS: BP 106/58
[2022-04-21] MEDS: AMLODIPINE 5MG TABLET PO SCH (08:28)
[2022-04-21] MEDS: RISPERIDONE 1MG TABLET PO SCH ×2 (08:28→20:28)
[2022-04-21 12:00] VITALS: BP 137/87
[2022-04-21 16:00] VITALS: BP 140/52
[2022-04-21 17:54] LABS: HEMOGLOBIN 8.6 g/dL (12.0-16.0); MEAN CORPUSCULAR HEMOGLOBIN 29.2 pg (28.0-32.0); PLATELET 224 x1000/uL (130-400); RED BLOOD CELL COUNT 2.93 mill/uL (4.2-5.4); RED CELL DISTRIBUTION WIDTH 16.5 % (11.6-14.6)
[2022-04-21 20:00] VITALS: BP 122/54
[2022-04-21] MEDS: LACTULOSE 20G/30ML UDC PO PRN (20:28)
[2022-04-22] VITALS: BP 133/62
[2022-04-22 04:00] VITALS: BP 155/60
[2022-04-22] MEDS: INSULIN LISPRO 100 UNITS/ML SUBCUT SCH ×4 (07:50→21:00)
[2022-04-22 08:00] VITALS: BP 155/67
[2022-04-22] MEDS: BLOOD SUGAR DIAGNOSTIC STRIP TEST SCH ×4 (08:03→21:00)
[2022-04-22] MEDS: LEVOTHYROXINE SODIUM 125MCG TABLET PO SCH (08:12)
[2022-04-22] MEDS: AMLODIPINE 5MG TABLET PO SCH (08:40)
[2022-04-22] MEDS: RISPERIDONE 1MG TABLET PO SCH (08:40)
[2022-04-22 12:00] VITALS: BP 143/58
[2022-04-22 16:00] VITALS: BP 135/50
[2022-04-22] MEDS: FUROSEMIDE 40MG TABLET PO SCH (17:10)
[2022-04-22 18:47] LABS: CLARITY URINE CLEAR (CLEAR); COLOR URINE YELLOW (YELLOW); KETONES URINE NEGATIVE (NEGATIVE); LEUKOCYTE ESTERASE URINE NEGATIVE (NEGATIVE); NITRITE URINE NEGATIVE (NEGATIVE); OCCULT BLOOD URINE NEGATIVE (NEGATIVE); PH URINE 5.5 (4.5-8.0); PROTEIN URINE 1+ (NEGATIVE); SPECIFIC GRAVITY URINE 1.013 (1.005-1.030); UROBILINOGEN URINE 0.2 E.U./dL (0.2-1.0)
[2022-04-22 20:00] VITALS: BP 142/69
[2022-04-23] VITALS: BP 135/65
[2022-04-23] MEDS: RISPERIDONE 1MG TABLET PO SCH ×3 (02:23→20:19)
[2022-04-23] MEDS: LACTULOSE 20G/30ML UDC PO PRN (02:23)
[2022-04-23 04:00] VITALS: BP 134/53
[2022-04-23] MEDS: LEVOTHYROXINE SODIUM 125MCG TABLET PO SCH (07:00)
[2022-04-23] MEDS: BLOOD SUGAR DIAGNOSTIC STRIP TEST SCH ×4 (07:00→21:00)
[2022-04-23] MEDS: INSULIN LISPRO 100 UNITS/ML SUBCUT SCH ×4 (07:50→21:00)
[2022-04-23 08:00] VITALS: BP 150/57
[2022-04-23] MEDS: FUROSEMIDE 40MG TABLET PO SCH (08:52)
[2022-04-23] MEDS: AMLODIPINE 5MG TABLET PO SCH (08:53)
[2022-04-23 12:00] VITALS: BP 129/54
[2022-04-23 16:00] VITALS: BP 147/55
[2022-04-23 20:00] VITALS: BP 106/57
[2022-04-24] VITALS: BP 107/60
[2022-04-24] MEDS: LEVOTHYROXINE SODIUM 125MCG TABLET PO SCH (07:23)
[2022-04-24] MEDS: BLOOD SUGAR DIAGNOSTIC STRIP TEST SCH ×4 (07:23→20:26)
[2022-04-24] MEDS: INSULIN LISPRO 100 UNITS/ML SUBCUT SCH ×4 (07:50→21:00)
[2022-04-24 08:00] VITALS: BP 146/51
[2022-04-24] MEDS: FUROSEMIDE 40MG TABLET PO SCH (08:21)
[2022-04-24] MEDS: RISPERIDONE 1MG TABLET PO SCH ×2 (08:22→21:27)
[2022-04-24] MEDS: AMLODIPINE 5MG TABLET PO SCH (08:22)
[2022-04-24 12:00] VITALS: BP 158/60
[2022-04-24 16:00] VITALS: BP 135/57
[2022-04-24 20:00] VITALS: BP 119/66
[2022-04-25] VITALS: BP 128/56
[2022-04-25 04:00] VITALS: BP 146/67
[2022-04-25] MEDS: LEVOTHYROXINE SODIUM 125MCG TABLET PO SCH (06:55)
[2022-04-25] MEDS: BLOOD SUGAR DIAGNOSTIC STRIP TEST SCH ×4 (07:20→21:50)
[2022-04-25] MEDS: INSULIN LISPRO 100 UNITS/ML SUBCUT SCH ×4 (07:50→21:00)
[2022-04-25 08:00] VITALS: BP 136/60
[2022-04-25] MEDS: FUROSEMIDE 40MG TABLET PO SCH (10:37)
[2022-04-25] MEDS: AMLODIPINE 5MG TABLET PO SCH (10:37)
[2022-04-25] MEDS: RISPERIDONE 1MG TABLET PO SCH ×2 (10:38→21:00)
[2022-04-25 12:00] VITALS: BP 131/59
[2022-04-25 16:00] VITALS: BP 115/47
[2022-04-25 20:00] VITALS: BP 113/54
[2022-04-26] VITALS: BP 124/53
[2022-04-26 04:00] VITALS: BP 118/68
[2022-04-26] MEDS: BLOOD SUGAR DIAGNOSTIC STRIP TEST SCH ×4 (06:17→21:07)
[2022-04-26] MEDS: LEVOTHYROXINE SODIUM 125MCG TABLET PO SCH (06:20)
[2022-04-26] MEDS: INSULIN LISPRO 100 UNITS/ML SUBCUT SCH ×4 (07:50→21:00)
[2022-04-26 08:00] VITALS: BP 134/54
[2022-04-26] MEDS: FUROSEMIDE 40MG TABLET PO SCH (08:20)
[2022-04-26] MEDS: RISPERIDONE 1MG TABLET PO SCH ×2 (08:20→21:00)
[2022-04-26] MEDS: AMLODIPINE 5MG TABLET PO SCH (08:20)
[2022-04-26 12:00] VITALS: BP 142/56
[2022-04-26 16:00] VITALS: BP 128/57
[2022-04-26 20:00] VITALS: BP 133/50
[2022-04-27] VITALS: BP 140/53
[2022-04-27 04:00] VITALS: BP 134/74
[2022-04-27] MEDS: LEVOTHYROXINE SODIUM 125MCG TABLET PO SCH (06:26)
[2022-04-27] MEDS: BLOOD SUGAR DIAGNOSTIC STRIP TEST SCH ×2 (06:26→12:10)
[2022-04-27] MEDS: INSULIN LISPRO 100 UNITS/ML SUBCUT SCH ×3 (07:50→17:20)
[2022-04-27 08:00] VITALS: BP 117/59
[2022-04-27] MEDS ORDERED: FUROSEMIDE 40MG TABLET PO SCH (09:00)
[2022-04-27] MEDS: RISPERIDONE 1MG TABLET PO SCH (09:09)
[2022-04-27] MEDS: AMLODIPINE 5MG TABLET PO SCH (09:10)
[2022-04-27 12:00] VITALS: BP 129/74
[2022-04-27 15:25] VITALS: BP 117/59
[2022-04-27 16:00] VITALS: BP 132/71
== END 2022-04-27 18:09 | disposition home or self-care (01) | DRG 70 ==
LOC: ER 20:57 → 7WST 04-01 02:28 → ENRESERV 04-01 07:14 → 6EST 04-17 23:20
PROVIDERS: ADMIT Internal Medicine; ATTEND Internal Medicine
PROC: 02HV33Z Insertion of Infusion Device into Superior Vena Cava, Percutaneous Approach (ICD-10-PCS; principal; 2022-04-08)
PROC: B548ZZA Ultrasonography of Superior Vena Cava, Guidance (ICD-10-PCS; 2022-04-08)
PROC: B5181ZA Fluoroscopy of Superior Vena Cava using Low Osmolar Contrast, Guidance (ICD-10-PCS; 2022-04-08)
DX: G93.40 Encephalopathy, unspecified (principal); I21.4 Non-ST elevation (NSTEMI) myocardial infarction; N17.0 Acute kidney failure with tubular necrosis; E44.1 Mild protein-calorie malnutrition; M62.82 Rhabdomyolysis; N18.4 Chronic kidney disease, stage 4 (severe); G62.9 Polyneuropathy, unspecified; E03.9 Hypothyroidism, unspecified; E11.22 Type 2 diabetes mellitus with diabetic chronic kidney disease; E11.42 Type 2 diabetes mellitus with diabetic polyneuropathy; E78.5 Hyperlipidemia, unspecified; F03.90 Unspecified dementia, unspecified severity, without behavioral disturbance, psychotic disturbance, mood disturbance, and anxiety; H40.9 Unspecified glaucoma; I44.0 Atrioventricular block, first degree; I45.10 Unspecified right bundle-branch block; N30.90 Cystitis, unspecified without hematuria; M16.12 Unilateral primary osteoarthritis, left hip; B96.20 Unspecified Escherichia coli [E. coli] as the cause of diseases classified elsewhere; R74.01 Elevation of levels of liver transaminase levels; Z20.822 Contact with and (suspected) exposure to COVID-19; E86.0 Dehydration; I49.3 Ventricular premature depolarization; D63.1 Anemia in chronic kidney disease; Z90.710 Acquired absence of both cervix and uterus; I13.10 Hypertensive heart and chronic kidney disease without heart failure, with stage 1 through stage 4 chronic kidney disease, or unspecified chronic kidney disease; Z96.641 Presence of right artificial hip joint; Z96.653 Presence of artificial knee joint, bilateral; Z79.82 Long term (current) use of aspirin; Z79.899 Other long term (current) drug therapy; Z68.39 Body mass index [BMI] 39.0-39.9, adult; Z88.0 Allergy status to penicillin; Z90.49 Acquired absence of other specified parts of digestive tract; Z88.2 Allergy status to sulfonamides; W06.XXXA Fall from bed, initial encounter; Y93.89 Activity, other specified; Y92.89 Other specified places as the place of occurrence of the external cause; Y99.8 Other external cause status; Z87.891 Personal history of nicotine dependence
CPT/HCPCS: 36415; 36573; 71045; 72170; 73552; 74176; 76700; 78452; 80048; 80053; 80076; 81003; 82550; 82962; 83036; 83735; 84100; 84484; 85025; 85027; 86850; 86900; 87077; 87186; 87426; 93005; 93017; 93306; 97116; 97162; 97530; 99285; A9500; C1725; C1769; C1893; J0696; J0885; J1815; J1885; J2785; J3490; J7030; J7060

== ENCOUNTER 2022-10-25 10:32 | Inpatient (IN) | payer BC, MEDICARE ==
[~2022-10-25] VITALS: Ht 162.6 cm; Wt 74.8 kg
[~2022-10-25 10:32] MED LIST changes: +ALD2525 MT; +AMLO10TA4 MT; +ASPI-1497 PO; +ATOR20TA MT; -ESTR0.3T3 MT; -GLIM4TAB36 MT; -LATA2.5D14 LEFTEYE; +LEVO125T8 PO; +METO100T16 PO; -TIMO15DR12 LEFTEYE
[2022-10-25] MEDS ORDERED: SODIUM CHLORIDE 0.9% 1,000 ML IV ONE (11:15)
[2022-10-25 12:33] LABS: BASOPHILS % 0.6 % (0.0-2.0); EOSINOPHILS % 0.5 % (0.0-5.0); HEMATOCRIT. 36.3 % (36.0-48.0); LYMPHOCYTES % 18.4 % (20.0-50.0); MEAN CORPUSCULAR HEMOGLOBIN 29.7 pg (28.0-32.0); MEAN CORPUSCULAR VOLUME 89.8 fL (81.0-99.0); MEAN PLATELET VOLUME 8.4 fl (7.4-10.4); MONOCYTES % 9.4 % (2.0-8.0); NEUTROPHILS % 71.1 % (40.0-76.0); PLATELET 160 x1000/uL (130-400); RED BLOOD CELL COUNT 4.04 mill/uL (4.2-5.4); RED CELL DISTRIBUTION WIDTH 14.7 % (11.6-14.6)
[2022-10-25 12:47] LABS: PROTHROMBIN TIME 10.9 sec (9.6-11.0)
[2022-10-25 12:51] LABS: CHLORIDE 100 mEq/L (98-107)
[2022-10-25] MEDS ORDERED: ACETAMINOPHEN 325MG TABLET PO PRN (15:15)
[2022-10-25] MEDS ORDERED: IPRATROPIUM/ALBUTEROL 0.5-3(2.5)MG/3ML NEB HHN PRN (15:15)
[2022-10-25] MEDS ORDERED: ONDANSETRON HCL 4MG/2ML INJ IV PRN (15:15)
[2022-10-25] MEDS ORDERED: CLONIDINE 0.1MG TABLET PO PRN (15:15)
[2022-10-25] MEDS ORDERED: SODIUM CHLORIDE 0.45% 1,000 ML IV NR (15:39)
[2022-10-25] MEDS: ATORVASTATIN CALCIUM 20MG TABLET PO SCH (16:37)
[2022-10-25] MEDS: ASPIRIN 81MG EC TABLET PO SCH (16:37)
[2022-10-25] MEDS: AMLODIPINE 10MG TABLET PO SCH (16:45)
[2022-10-25] MEDS ORDERED: DEXTROSE 50% WATER 50ML SYRINGE IV PRN (16:45)
[2022-10-25] MEDS: BLOOD SUGAR DIAGNOSTIC STRIP TEST SCH ×2 (17:00→20:59)
[2022-10-25 17:27] VITALS: BP 152/53
[2022-10-25] MEDS: INSULIN LISPRO 100 UNITS/ML SUBCUT SCH ×2 (17:36→21:05)
[2022-10-25] MEDS: LEVOTHYROXINE SODIUM 125MCG TABLET PO SCH (17:36)
[2022-10-25] MEDS: ENOXAPARIN 30MG/0.3ML SYR SUBCUT SCH (17:37)
[2022-10-25 17:49] VITALS: BP 152/73
[2022-10-25 19:57] VITALS: BP 161/74
[2022-10-26 00:08] VITALS: BP 137/70
[2022-10-26 03:45] VITALS: BP 128/65
[2022-10-26] MEDS: BLOOD SUGAR DIAGNOSTIC STRIP TEST SCH ×4 (06:50→20:33)
[2022-10-26] MEDS: LEVOTHYROXINE SODIUM 125MCG TABLET PO SCH (06:53)
[2022-10-26] MEDS: INSULIN LISPRO 100 UNITS/ML SUBCUT SCH ×4 (07:20→20:40)
[2022-10-26] MEDS: AMLODIPINE 10MG TABLET PO SCH (08:32)
[2022-10-26] MEDS: ATORVASTATIN CALCIUM 20MG TABLET PO SCH (08:33)
[2022-10-26] MEDS: METOPROLOL SUCCINATE 50MG ER TABLET PO SCH (08:33)
[2022-10-26] MEDS: ASPIRIN 81MG EC TABLET PO SCH (08:33)
[2022-10-26 12:27] VITALS: BP 131/56
[2022-10-26] MEDS: ENOXAPARIN 30MG/0.3ML SYR SUBCUT SCH (16:06)
[2022-10-26 16:13] VITALS: BP 133/55
[2022-10-26 19:56] VITALS: BP 122/75
[2022-10-26] MEDS: INSULIN GLARGINE 100 UNITS/ML SUBCUT SCH (22:02)
[2022-10-26 23:55] VITALS: BP 132/60
[2022-10-27 04:00] VITALS: BP 141/70
[2022-10-27 06:03] LABS: BASOPHILS % 0.5 % (0.0-2.0); EOSINOPHILS % 0.6 % (0.0-5.0); HEMATOCRIT. 34.6 % (36.0-48.0); HEMOGLOBIN. 11.9 g/dL (12.0-16.0); LYMPHOCYTES % 16.4 % (20.0-50.0); MEAN CORPUSCULAR HEMOGLOBIN 30.3 pg (28.0-32.0); MEAN CORPUSCULAR VOLUME 88.5 fL (81.0-99.0); MEAN PLATELET VOLUME 8.4 fl (7.4-10.4); MONOCYTES % 9.4 % (2.0-8.0); NEUTROPHILS % 73.1 % (40.0-76.0); PLATELET 167 x1000/uL (130-400); RED BLOOD CELL COUNT 3.91 mill/uL (4.2-5.4)
[2022-10-27] MEDS: BLOOD SUGAR DIAGNOSTIC STRIP TEST SCH ×4 (06:58→21:00)
[2022-10-27] MEDS: LEVOTHYROXINE SODIUM 125MCG TABLET PO SCH (06:58)
[2022-10-27 07:45] VITALS: BP 125/60
[2022-10-27] MEDS: AMLODIPINE 10MG TABLET PO SCH (07:48)
[2022-10-27] MEDS: INSULIN LISPRO 100 UNITS/ML SUBCUT SCH ×4 (07:48→22:18)
[2022-10-27] MEDS: ASPIRIN 81MG EC TABLET PO SCH (07:49)
[2022-10-27] MEDS: METOPROLOL SUCCINATE 50MG ER TABLET PO SCH (07:49)
[2022-10-27] MEDS: ATORVASTATIN CALCIUM 20MG TABLET PO SCH (07:49)
[2022-10-27 10:32] VITALS: BP 136/66
[2022-10-27 11:45] VITALS: BP 141/68
[2022-10-27 15:21] VITALS: BP 139/69
[2022-10-27] MEDS: ENOXAPARIN 30MG/0.3ML SYR SUBCUT SCH (15:24)
[2022-10-27 20:00] VITALS: BP 131/73
[2022-10-27] MEDS: INSULIN GLARGINE 100 UNITS/ML SUBCUT SCH (22:19)
[2022-10-28] VITALS: BP 113/68
[2022-10-28 04:00] VITALS: BP 139/62
[2022-10-28] MEDS: BLOOD SUGAR DIAGNOSTIC STRIP TEST SCH ×4 (06:50→21:11)
[2022-10-28] MEDS: INSULIN LISPRO 100 UNITS/ML SUBCUT SCH ×4 (07:20→21:11)
[2022-10-28 08:14] VITALS: BP 131/66
[2022-10-28] MEDS: ASPIRIN 81MG EC TABLET PO SCH (08:14)
[2022-10-28] MEDS: ATORVASTATIN CALCIUM 20MG TABLET PO SCH (08:14)
[2022-10-28] MEDS: LEVOTHYROXINE SODIUM 125MCG TABLET PO SCH (08:14)
[2022-10-28] MEDS: AMLODIPINE 10MG TABLET PO SCH (08:14)
[2022-10-28] MEDS: METOPROLOL SUCCINATE 50MG ER TABLET PO SCH (08:14)
[2022-10-28 12:00] VITALS: BP 130/69
[2022-10-28 16:00] VITALS: BP 143/67
[2022-10-28 17:08] LABS: BASOPHILS % 0.5 % (0.0-2.0); EOSINOPHILS % 0.7 % (0.0-5.0); HEMOGLOBIN. 12.9 g/dL (12.0-16.0); MEAN CORPUSCULAR HEMOGLOBIN 29.8 pg (28.0-32.0); MEAN CORPUSCULAR VOLUME 90.3 fL (81.0-99.0); MEAN PLATELET VOLUME 8.2 fl (7.4-10.4); MONOCYTES % 9.3 % (2.0-8.0); NEUTROPHILS % 68.5 % (40.0-76.0); PLATELET 181 x1000/uL (130-400); RED BLOOD CELL COUNT 4.32 mill/uL (4.2-5.4)
[2022-10-28 17:20] LABS: CHLORIDE 103 mEq/L (98-107)
[2022-10-28] MEDS: ENOXAPARIN 30MG/0.3ML SYR SUBCUT SCH (17:46)
[2022-10-28 20:00] VITALS: BP 132/70
[2022-10-28] MEDS: INSULIN GLARGINE 100 UNITS/ML SUBCUT SCH (21:11)
[2022-10-29] VITALS: BP 127/60
[2022-10-29 04:00] VITALS: BP 138/65
[2022-10-29] MEDS: LEVOTHYROXINE SODIUM 125MCG TABLET PO SCH (06:32)
[2022-10-29] MEDS: INSULIN LISPRO 100 UNITS/ML SUBCUT SCH ×4 (07:20→21:20)
[2022-10-29] MEDS: BLOOD SUGAR DIAGNOSTIC STRIP TEST SCH ×4 (07:33→21:21)
[2022-10-29 08:00] VITALS: BP 128/68
[2022-10-29] MEDS: ASPIRIN 81MG EC TABLET PO SCH (08:07)
[2022-10-29] MEDS: ATORVASTATIN CALCIUM 20MG TABLET PO SCH (08:08)
[2022-10-29] MEDS: AMLODIPINE 10MG TABLET PO SCH (08:08)
[2022-10-29] MEDS: METOPROLOL SUCCINATE 50MG ER TABLET PO SCH (08:09)
[2022-10-29 12:00] VITALS: BP 131/71
[2022-10-29] MEDS: ENOXAPARIN 30MG/0.3ML SYR SUBCUT SCH (15:33)
[2022-10-29 16:00] VITALS: BP 125/68
[2022-10-29 20:00] VITALS: BP 147/73
[2022-10-29] MEDS: INSULIN GLARGINE 100 UNITS/ML SUBCUT SCH (21:20)
[2022-10-30] VITALS: BP 144/77
[2022-10-30 04:00] VITALS: BP 140/70
[2022-10-30] MEDS: LEVOTHYROXINE SODIUM 125MCG TABLET PO SCH (06:11)
[2022-10-30] MEDS: BLOOD SUGAR DIAGNOSTIC STRIP TEST SCH ×4 (06:43→22:38)
[2022-10-30] MEDS: INSULIN LISPRO 100 UNITS/ML SUBCUT SCH ×4 (06:46→22:48)
[2022-10-30 08:00] VITALS: BP 125/76
[2022-10-30] MEDS: ASPIRIN 81MG EC TABLET PO SCH (08:44)
[2022-10-30] MEDS: AMLODIPINE 10MG TABLET PO SCH (08:44)
[2022-10-30] MEDS: METOPROLOL SUCCINATE 50MG ER TABLET PO SCH (08:44)
[2022-10-30] MEDS: ATORVASTATIN CALCIUM 20MG TABLET PO SCH (08:44)
[2022-10-30 16:00] VITALS: BP 139/68
[2022-10-30] MEDS: ENOXAPARIN 30MG/0.3ML SYR SUBCUT SCH (17:29)
[2022-10-30 20:14] VITALS: BP 125/62
[2022-10-30] MEDS: INSULIN GLARGINE 100 UNITS/ML SUBCUT SCH (22:48)
[2022-10-31] VITALS (8 sets, daily range): BP systolic 116–137; BP diastolic 57–81
[2022-10-31] MEDS: LEVOTHYROXINE SODIUM 125MCG TABLET PO SCH (06:26)
[2022-10-31] MEDS: BLOOD SUGAR DIAGNOSTIC STRIP TEST SCH ×4 (06:26→21:44)
[2022-10-31] MEDS: INSULIN LISPRO 100 UNITS/ML SUBCUT SCH ×4 (06:26→21:56)
[2022-10-31] MEDS: ATORVASTATIN CALCIUM 20MG TABLET PO SCH (08:49)
[2022-10-31] MEDS: ASPIRIN 81MG EC TABLET PO SCH (08:49)
[2022-10-31] MEDS: AMLODIPINE 10MG TABLET PO SCH (08:50)
[2022-10-31] MEDS: METOPROLOL SUCCINATE 50MG ER TABLET PO SCH (08:50)
[2022-10-31] MEDS: ENOXAPARIN 30MG/0.3ML SYR SUBCUT SCH (16:11)
[2022-10-31] MEDS: INSULIN GLARGINE 100 UNITS/ML SUBCUT SCH (21:57)
[2022-11-01 03:49] VITALS: BP 144/66
[2022-11-01] MEDS: LEVOTHYROXINE SODIUM 125MCG TABLET PO SCH (06:32)
[2022-11-01] MEDS: BLOOD SUGAR DIAGNOSTIC STRIP TEST SCH ×4 (06:37→22:31)
[2022-11-01 08:00] VITALS: BP 136/62
[2022-11-01] MEDS: INSULIN LISPRO 100 UNITS/ML SUBCUT SCH ×4 (08:12→22:42)
[2022-11-01] MEDS: AMLODIPINE 10MG TABLET PO SCH (09:29)
[2022-11-01] MEDS: METOPROLOL SUCCINATE 50MG ER TABLET PO SCH (09:30)
[2022-11-01] MEDS: ATORVASTATIN CALCIUM 20MG TABLET PO SCH (09:30)
[2022-11-01] MEDS: ASPIRIN 81MG EC TABLET PO SCH (09:30)
[2022-11-01 12:00] VITALS: BP 139/68
[2022-11-01 14:57] VITALS: BP_SYST 129; BP_SYST 139; BP_DIAS 68; BP_DIAS 69
[2022-11-01 16:00] VITALS: BP 144/66
[2022-11-01] MEDS: ENOXAPARIN 30MG/0.3ML SYR SUBCUT SCH (16:37)
[2022-11-01 16:44] LABS: BASOPHILS % 0.7 % (0.0-2.0); EOSINOPHILS % 1.3 % (0.0-5.0); HEMATOCRIT. 36.6 % (36.0-48.0); HEMOGLOBIN. 12.2 g/dL (12.0-16.0); LYMPHOCYTES % 18.4 % (20.0-50.0); MEAN CORPUSCULAR HEMOGLOBIN 30.1 pg (28.0-32.0); MEAN CORPUSCULAR VOLUME 90.3 fL (81.0-99.0); MONOCYTES % 9.9 % (2.0-8.0); NEUTROPHILS % 69.7 % (40.0-76.0); PLATELET 194 x1000/uL (130-400); RED BLOOD CELL COUNT 4.05 mill/uL (4.2-5.4); RED CELL DISTRIBUTION WIDTH 14.9 % (11.6-14.6)
[2022-11-01 20:23] VITALS: BP 122/63
[2022-11-01] MEDS: INSULIN GLARGINE 100 UNITS/ML SUBCUT SCH (22:41)
[2022-11-02] VITALS: BP 122/61
[2022-11-02 04:32] VITALS: BP 130/67
[2022-11-02] MEDS: BLOOD SUGAR DIAGNOSTIC STRIP TEST SCH (06:15)
[2022-11-02] MEDS: LEVOTHYROXINE SODIUM 125MCG TABLET PO SCH (06:16)
[2022-11-02] MEDS: INSULIN LISPRO 100 UNITS/ML SUBCUT SCH (07:20)
[2022-11-02 08:00] VITALS: BP 133/63
[2022-11-02] MEDS: ATORVASTATIN CALCIUM 20MG TABLET PO SCH (09:22)
[2022-11-02] MEDS: METOPROLOL SUCCINATE 50MG ER TABLET PO SCH (09:22)
[2022-11-02] MEDS: AMLODIPINE 10MG TABLET PO SCH (09:22)
[2022-11-02] MEDS: ASPIRIN 81MG EC TABLET PO SCH (09:22)
== END 2022-11-02 11:10 | DRG 637 ==
LOC: ER 10:32 → EDBEDREQ 11:35 → EDBEDREQTM 13:05 → EDBEDREQ 13:05 → EDBEDREQSVC 15:21 → 3WST 17:04
PROVIDERS: ADMIT Internal Medicine; ATTEND Internal Medicine
DX: E11.65 Type 2 diabetes mellitus with hyperglycemia (principal); N17.0 Acute kidney failure with tubular necrosis; E86.0 Dehydration; E78.5 Hyperlipidemia, unspecified; E03.9 Hypothyroidism, unspecified; E11.22 Type 2 diabetes mellitus with diabetic chronic kidney disease; I12.9 Hypertensive chronic kidney disease with stage 1 through stage 4 chronic kidney disease, or unspecified chronic kidney disease; N18.9 Chronic kidney disease, unspecified; Z20.822 Contact with and (suspected) exposure to COVID-19; F03.90 Unspecified dementia, unspecified severity, without behavioral disturbance, psychotic disturbance, mood disturbance, and anxiety; Z88.0 Allergy status to penicillin; Z88.2 Allergy status to sulfonamides; Z96.659 Presence of unspecified artificial knee joint
CPT/HCPCS: 36415; 71045; 80048; 80053; 82962; 83036; 84484; 85025; 87426; 92523; 93005; 93970; 97116; 97162; 97166; 97530; 99285; C9803; J1650; J1815; J7030

== ENCOUNTER 2023-04-15 02:48 | Inpatient (IN) | payer BC, MEDICARE ==
[~2023-04-15] VITALS: Ht 162.6 cm; Wt 73.5 kg
[~2023-04-15 02:48] MED LIST changes: -ALD2525 MT
[2023-04-15 06:49] LABS: BASOPHILS % 0.7 % (0.0-2.0); EOSINOPHILS % 1.1 % (0.0-5.0); HEMATOCRIT. 28.4 % (36.0-48.0); HEMOGLOBIN. 9.4 g/dL (12.0-16.0); LYMPHOCYTES % 22.5 % (20.0-50.0); MEAN CORPUSCULAR HEMOGLOBIN 29.3 pg (28.0-32.0); MEAN CORPUSCULAR HGB CONC 33.1 g/dL (31.0-37.0); MEAN CORPUSCULAR VOLUME 88.6 fL (81.0-99.0); MEAN PLATELET VOLUME 7.7 fl (7.4-10.4); MONOCYTES % 10.8 % (2.0-8.0); NEUTROPHILS % 64.9 % (40.0-76.0); PLATELET 180 x1000/uL (130-400); WHITE BLOOD COUNT 5.7 x1000/uL (4.5-11.0)
[2023-04-15 06:56] LABS: CHLORIDE 109 mEq/L (98-107); INDEX HEMOLYSI 1 (1-3); INDEX ICTERIC 1 (1-4); INDEX LIPEMIC 1 (1-3); POTASSIUM 3.6 mEq/L (3.5-5.1); SODIUM 140 mEq/L (136-145)
[2023-04-15 07:05] LABS: ALANINE AMINOTRANSFERASE 19 IU/L (13-61); ALBUMIN 2.7 g/dL (3.4-5.0); ASPARTATE AMINOTRANSFERASE 22 IU/L (15-37); BILIRUBIN TOTAL 0.3 mg/dL (0.1-1.0); CALCIUM 8.6 mg/dL (8.5-10.1); CARBON DIOXIDE 27 mEq/L (21-32); CREATININE 1.8 mg/dL (0.6-1.3); GLUCOSE 96 mg/dL (70-105); UREA NITROGEN BLOOD 32 mg/dL (7-21)
[2023-04-15 09:33] LABS: CLARITY URINE CLEAR (CLEAR); COLOR URINE YELLOW (YELLOW); GLUCOSE URINE NEGATIVE (NEGATIVE); KETONES URINE NEGATIVE (NEGATIVE); LEUKOCYTE ESTERASE URINE 1+ (NEGATIVE); NITRITE URINE POSITIVE (NEGATIVE); OCCULT BLOOD URINE NEGATIVE (NEGATIVE); PH URINE 5.5 (4.5-8.0); PROTEIN URINE 2+ (NEGATIVE); SPECIFIC GRAVITY URINE 1.009 (1.005-1.030); UROBILINOGEN URINE 0.2 E.U./dL (0.2-1.0)
[2023-04-15 10:25] LABS: BACTERIA URINE 2+; RBC URINE NONE SEEN /hpf (0-2); SQUAMOUS EPITHELIAL CELL URINE NONE SEEN /lpf (RARE/1+); WBC URINE 15-25 /hpf (0-2)
[2023-04-15] MEDS ORDERED: MORPHINE SULFATE 2 MG/ML CPJ (NOT FOR IM USE) IV ONE (11:00)
[2023-04-15] MEDS ORDERED: CEFTRIAXONE 1GM PREMIX 50 ML IV ONE (13:45)
[2023-04-15] MEDS ORDERED: TRAMADOL 50MG TABLET PO PRN (15:45)
[2023-04-15] MEDS ORDERED: ONDANSETRON HCL 4MG/2ML INJ IV PRN (15:45)
[2023-04-15] MEDS ORDERED: CEFTRIAXONE 1GM PREMIX 50 ML IV SCH (15:45)
[2023-04-15] MEDS ORDERED: ACETAMINOPHEN 325MG TABLET PO PRN (15:45)
[2023-04-15 20:00] VITALS: BP 155/65; PULSE 68; RESP 17; RESP 18; TEMP 97.9
[2023-04-16 04:00] VITALS: BP 165/64; PULSE 66; RESP 17; TEMP 98.1
[2023-04-16 08:00] VITALS: BP 138/60; PULSE 77; RESP 20; TEMP 98.1
[2023-04-16 12:00] VITALS: BP 137/60; PULSE 71; RESP 19; TEMP 97.9
[2023-04-16] MEDS: CEFTRIAXONE 1,000 MG in DEXTROSE 5% WATER 50 ML IV SCH (13:30)
[2023-04-16 14:00] VITALS: BP 137/60; PULSE 71; RESP 19; TEMP 97.7
[2023-04-16 20:55] VITALS: BP 149/57; PULSE 78; RESP 20; TEMP 97.8
[2023-04-17] VITALS: BP 138/60; PULSE 73; RESP 20; TEMP 98.7
[2023-04-17 04:00] VITALS: BP 135/58; PULSE 71; RESP 18; TEMP 97.9
[2023-04-17 07:24] LABS: BASOPHILS % 0.9 % (0.0-2.0); EOSINOPHILS % 1.1 % (0.0-5.0); HEMOGLOBIN. 9.6 g/dL (12.0-16.0); LYMPHOCYTES % 21.9 % (20.0-50.0); MEAN CORPUSCULAR HEMOGLOBIN 29.2 pg (28.0-32.0); MEAN CORPUSCULAR HGB CONC 32.9 g/dL (31.0-37.0); MEAN CORPUSCULAR VOLUME 88.6 fL (81.0-99.0); MEAN PLATELET VOLUME 7.7 fl (7.4-10.4); MONOCYTES % 10.5 % (2.0-8.0); NEUTROPHILS % 65.6 % (40.0-76.0); PLATELET 206 x1000/uL (130-400); RED BLOOD CELL COUNT 3.27 mill/uL (4.2-5.4); RED CELL DISTRIBUTION WIDTH 14.5 % (11.6-14.6); WHITE BLOOD COUNT 5.3 x1000/uL (4.5-11.0)
[2023-04-17 07:39] LABS: CHLORIDE 112 mEq/L (98-107); INDEX HEMOLYSI 1 (1-3); INDEX ICTERIC 1 (1-4); INDEX LIPEMIC 1 (1-3); POTASSIUM 3.8 mEq/L (3.5-5.1); SODIUM 143 mEq/L (136-145)
[2023-04-17 07:46] LABS: ALANINE AMINOTRANSFERASE 19 IU/L (13-61); ALBUMIN 2.6 g/dL (3.4-5.0); ASPARTATE AMINOTRANSFERASE 19 IU/L (15-37); BILIRUBIN TOTAL 0.5 mg/dL (0.1-1.0); CARBON DIOXIDE 29 mEq/L (21-32); CREATININE 1.6 mg/dL (0.6-1.3); GLUCOSE 118 mg/dL (70-105); UREA NITROGEN BLOOD 28 mg/dL (7-21)
[2023-04-17 08:00] VITALS: BP 127/59; PULSE 72; RESP 19; TEMP 97.8
[2023-04-17] MEDS ORDERED: NALOXONE HCL 0.4MG/ML VIAL IV PRN (09:15)
[2023-04-17 12:00] VITALS: BP 152/52; PULSE 75; RESP 20; TEMP 97.6
[2023-04-17] MEDS: CEFTRIAXONE 1,000 MG in DEXTROSE 5% WATER 50 ML IV SCH (12:53)
[2023-04-17 16:00] VITALS: BP 150/81; PULSE 73; RESP 21; TEMP 97.1
[2023-04-17 20:00] VITALS: BP 93/49; PULSE 71; RESP 18; TEMP 97.9
[2023-04-18] VITALS: BP 112/67; PULSE 71; RESP 18; TEMP 97.5
[2023-04-18 04:00] VITALS: BP 108/78; PULSE 77; RESP 18; TEMP 97.9
[2023-04-18 06:28] LABS: BASOPHILS % 0.9 % (0.0-2.0); EOSINOPHILS % 1.5 % (0.0-5.0); HEMOGLOBIN. 9.6 g/dL (12.0-16.0); LYMPHOCYTES % 27.4 % (20.0-50.0); MEAN CORPUSCULAR HEMOGLOBIN 29.2 pg (28.0-32.0); MEAN CORPUSCULAR HGB CONC 33.2 g/dL (31.0-37.0); MEAN CORPUSCULAR VOLUME 88.2 fL (81.0-99.0); MEAN PLATELET VOLUME 7.6 fl (7.4-10.4); MONOCYTES % 10.6 % (2.0-8.0); NEUTROPHILS % 59.6 % (40.0-76.0); PLATELET 204 x1000/uL (130-400); RED BLOOD CELL COUNT 3.29 mill/uL (4.2-5.4); RED CELL DISTRIBUTION WIDTH 14.8 % (11.6-14.6); WHITE BLOOD COUNT 5.1 x1000/uL (4.5-11.0)
[2023-04-18 07:02] LABS: POTASSIUM 3.7 mEq/L (3.5-5.1)
[2023-04-18 07:08] LABS: CALCIUM 8.7 mg/dL (8.5-10.1); CREATININE 1.5 mg/dL (0.6-1.3)
[2023-04-18 08:00] VITALS: BP 178/61; PULSE 73; RESP 18; TEMP 97.7
[2023-04-18] MEDS: SODIUM CHLORIDE 0.45% 1,000 ML IV SCH (11:00)
[2023-04-18 12:00] VITALS: BP 153/61; PULSE 71; RESP 19; TEMP 97.7
[2023-04-18] MEDS: CEFTRIAXONE 1,000 MG in DEXTROSE 5% WATER 50 ML IV SCH (13:56)
[2023-04-18 16:00] VITALS: BP 165/73; PULSE 74; RESP 19; TEMP 96.7
[2023-04-18] MEDS: MEROPENEM 1000MG in NORMAL SALINE 100ML IV SCH (18:00)
[2023-04-18] MEDS ORDERED: AMLODIPINE 10MG TABLET PO NR (19:00)
[2023-04-18 20:00] VITALS: BP 150/55; PULSE 81; RESP 21; TEMP 98.1
[2023-04-19] VITALS: BP 158/84; PULSE 86; RESP 20; TEMP 97.9
[2023-04-19 04:00] VITALS: BP 145/66; PULSE 78; RESP 20; TEMP 97.7
[2023-04-19] MEDS: MEROPENEM 1000MG in NORMAL SALINE 100ML IV SCH ×2 (05:59→18:00)
[2023-04-19] MEDS: SODIUM CHLORIDE 0.45% 1,000 ML IV SCH (06:00)
[2023-04-19 08:00] VITALS: BP 147/64; PULSE 69; RESP 18; TEMP 97.4
[2023-04-19 12:00] VITALS: BP 144/69; PULSE 78; RESP 18; TEMP 99.6
[2023-04-19 16:00] VITALS: BP 127/82; PULSE 82; RESP 18; TEMP 97.9
[2023-04-19 20:00] VITALS: BP 137/59; PULSE 65; RESP 20; TEMP 97.9
[2023-04-20] VITALS: BP 132/61; PULSE 60; RESP 20; TEMP 97.9
[2023-04-20] MEDS: SODIUM CHLORIDE 0.45% 1,000 ML IV SCH ×2 (03:00→22:10)
[2023-04-20] MEDS: MEROPENEM 1000MG in NORMAL SALINE 100ML IV SCH ×2 (06:00→18:31)
[2023-04-20 09:50] LABS: EOSINOPHILS % 1.4 % (0.0-5.0); HEMATOCRIT. 29.9 % (36.0-48.0); HEMOGLOBIN. 9.7 g/dL (12.0-16.0); MEAN CORPUSCULAR HEMOGLOBIN 28.7 pg (28.0-32.0); MEAN CORPUSCULAR HGB CONC 32.5 g/dL (31.0-37.0); MEAN CORPUSCULAR VOLUME 88.3 fL (81.0-99.0); MEAN PLATELET VOLUME 7.2 fl (7.4-10.4); NEUTROPHILS % 65.6 % (40.0-76.0); PLATELET 229 x1000/uL (130-400); RED BLOOD CELL COUNT 3.38 mill/uL (4.2-5.4); RED CELL DISTRIBUTION WIDTH 14.7 % (11.6-14.6); WHITE BLOOD COUNT 4.9 x1000/uL (4.5-11.0)
[2023-04-20 12:39] LABS: POTASSIUM 3.9 mEq/L (3.5-5.1)
[2023-04-20 12:53] LABS: CALCIUM 8.7 mg/dL (8.5-10.1); CREATININE 1.5 mg/dL (0.6-1.3)
[2023-04-20] MEDS ORDERED: LIDOCAINE HCL 1% 10 MG/ML 10ML VIAL ONE (14:19)
[2023-04-20] MEDS ORDERED: NALOXONE HCL 0.4MG/ML VIAL IV PRN (15:15)
[2023-04-20 20:00] VITALS: BP 114/60; PULSE 66; RESP 20; TEMP 97.8
[2023-04-21] VITALS: BP 148/67; PULSE 67; RESP 18; TEMP 98.5
[2023-04-21 04:00] VITALS: BP 154/64; PULSE 68; RESP 18; TEMP 97.8
[2023-04-21] MEDS: MEROPENEM 1000MG in NORMAL SALINE 100ML IV SCH ×2 (05:48→16:30)
[2023-04-21 08:00] VITALS: BP 142/74; PULSE 73; RESP 19; TEMP 96.7
[2023-04-21 12:00] VITALS: BP 136/65; PULSE 65; RESP 19; TEMP 96.7
[2023-04-21 16:00] VITALS: BP 139/78; PULSE 65; RESP 20; TEMP 96.8
[2023-04-21] MEDS: SODIUM CHLORIDE 0.45% 1,000 ML IV SCH (18:39)
[2023-04-21 20:00] VITALS: BP 158/69; PULSE 68; RESP 20; TEMP 98.4
[2023-04-21] MEDS ORDERED: ONDANSETRON HCL 4MG TABLET PO PRN (20:55)
[2023-04-22] VITALS: BP 150/53; PULSE 68; RESP 19; TEMP 97.9
[2023-04-22 04:00] VITALS: BP 163/62; PULSE 70; RESP 18; TEMP 98.5
[2023-04-22] MEDS: MEROPENEM 1000MG in NORMAL SALINE 100ML IV SCH ×2 (07:06→18:00)
[2023-04-22 08:00] VITALS: BP 153/70; PULSE 65; RESP 18; TEMP 97.4
[2023-04-22 12:00] VITALS: BP 117/76; PULSE 69; RESP 18; TEMP 99.5
[2023-04-22] MEDS: SODIUM CHLORIDE 0.45% 1,000 ML IV SCH (15:00)
[2023-04-22 16:00] VITALS: BP 157/63; PULSE 69; RESP 19; TEMP 97.7
[2023-04-23] MEDS: MEROPENEM 1000MG in NORMAL SALINE 100ML IV SCH (06:59)
[2023-04-23 08:00] VITALS: BP 157/65; PULSE 62; RESP 17; TEMP 97.5
[2023-04-23] MEDS: SODIUM CHLORIDE 0.45% 1,000 ML IV SCH (11:00)
[2023-04-23 12:00] VITALS: BP 137/64; PULSE 67; RESP 18; TEMP 97.7
[2023-04-23 16:00] VITALS: BP 128/64; PULSE 60; RESP 19; TEMP 97.3
[2023-04-24] MEDS: SODIUM CHLORIDE 0.45% 1,000 ML IV SCH (06:55)
[2023-04-24 12:00] VITALS: BP 151/43; PULSE 71; RESP 19; TEMP 97.6
[2023-04-24 14:00] LABS: BASOPHILS % 0.9 % (0.0-2.0); EOSINOPHILS % 1.3 % (0.0-5.0); HEMATOCRIT. 30.1 % (36.0-48.0); HEMOGLOBIN. 9.8 g/dL (12.0-16.0); LYMPHOCYTES % 33.3 % (20.0-50.0); MEAN CORPUSCULAR HGB CONC 32.7 g/dL (31.0-37.0); MEAN CORPUSCULAR VOLUME 88.5 fL (81.0-99.0); MEAN PLATELET VOLUME 7.9 fl (7.4-10.4); MONOCYTES % 7.6 % (2.0-8.0); NEUTROPHILS % 56.9 % (40.0-76.0); PLATELET 228 x1000/uL (130-400); RED BLOOD CELL COUNT 3.39 mill/uL (4.2-5.4); RED CELL DISTRIBUTION WIDTH 15.2 % (11.6-14.6); WHITE BLOOD COUNT 5.5 x1000/uL (4.5-11.0)
[2023-04-24 14:13] LABS: POTASSIUM 3.8 mEq/L (3.5-5.1)
[2023-04-24 14:21] LABS: CALCIUM 8.7 mg/dL (8.5-10.1); CREATININE 1.4 mg/dL (0.6-1.3)
[2023-04-24 16:00] VITALS: PULSE 71; RESP 20; TEMP 98.5
[2023-04-24 20:00] VITALS: BP 162/99; PULSE 71; RESP 20; TEMP 98.2
[2023-04-25] VITALS: BP 141/46; PULSE 65; RESP 18; TEMP 97.8
[2023-04-25] MEDS: SODIUM CHLORIDE 0.45% 1,000 ML IV SCH (03:00)
[2023-04-25 08:00] VITALS: BP 167/67; PULSE 59; RESP 19; TEMP 97.5
[2023-04-25 12:00] VITALS: BP 108/69; PULSE 64; RESP 19; TEMP 97.5
[2023-04-25 16:00] VITALS: BP 135/66; PULSE 68; RESP 19; TEMP 97.9
[2023-04-25 18:12] LABS: BASOPHILS % 1.3 % (0.0-2.0); EOSINOPHILS % 1.3 % (0.0-5.0); HEMATOCRIT. 32.1 % (36.0-48.0); HEMOGLOBIN. 10.4 g/dL (12.0-16.0); LYMPHOCYTES % 34.6 % (20.0-50.0); MEAN CORPUSCULAR HEMOGLOBIN 28.7 pg (28.0-32.0); MEAN CORPUSCULAR HGB CONC 32.5 g/dL (31.0-37.0); MEAN CORPUSCULAR VOLUME 88.5 fL (81.0-99.0); MEAN PLATELET VOLUME 7.7 fl (7.4-10.4); MONOCYTES % 8.9 % (2.0-8.0); NEUTROPHILS % 53.9 % (40.0-76.0); PLATELET 239 x1000/uL (130-400); RED BLOOD CELL COUNT 3.62 mill/uL (4.2-5.4); RED CELL DISTRIBUTION WIDTH 15.3 % (11.6-14.6); WHITE BLOOD COUNT 4.5 x1000/uL (4.5-11.0)
[2023-04-25 19:13] LABS: CALCIUM 8.7 mg/dL (8.5-10.1); CREATININE 1.3 mg/dL (0.6-1.3); POTASSIUM 3.9 mEq/L (3.5-5.1)
[2023-04-26 08:00] VITALS: BP 154/84; PULSE 71; RESP 18; TEMP 98
[2023-04-26 12:00] VITALS: BP 140/74; PULSE 72; RESP 18; TEMP 98.3
[2023-04-26 16:00] VITALS: BP 157/67; PULSE 66; RESP 18; TEMP 98.6
[2023-04-26] MEDS: SODIUM CHLORIDE 0.45% 1,000 ML IV SCH (19:00)
[2023-04-26 20:00] VITALS: BP 151/61; PULSE 58; RESP 19; TEMP 97.9
[2023-04-27 04:00] VITALS: BP 133/68; PULSE 65; RESP 20; TEMP 97.7
[2023-04-27] MEDS: SODIUM CHLORIDE 0.45% 1,000 ML IV SCH ×2 (06:31→15:00)
[2023-04-27 08:00] VITALS: BP 145/55; PULSE 59; RESP 18; TEMP 97.7
[2023-04-27 12:00] VITALS: BP 145/61; PULSE 64; RESP 18; TEMP 98.1
[2023-04-27 16:00] VITALS: BP 128/56; PULSE 63; RESP 16; TEMP 97.6
[2023-04-27 20:00] VITALS: BP_SYST 126; BP_SYST 155; BP_DIAS 69; BP_DIAS 83; PULSE 69; PULSE 92; RESP 19; RESP 20; TEMP 100.2; TEMP 98.1
[2023-04-28] VITALS: BP 148/66; PULSE 61; RESP 20; TEMP 98.4
[2023-04-28 04:00] VITALS: BP 158/62; PULSE 65; RESP 20; TEMP 97.5
[2023-04-28 08:00] VITALS: BP 128/68; PULSE 64; RESP 20; TEMP 96.8
[2023-04-28] MEDS: SODIUM CHLORIDE 0.45% 1,000 ML IV SCH (10:15)
[2023-04-28 12:00] VITALS: BP 152/50; PULSE 75; RESP 19; TEMP 97.6
[2023-04-28 15:27] VITALS: BP 152/50; PULSE 75; TEMP 97.6; O2SAT 98
== END 2023-04-28 17:40 | disposition home or self-care (01) | DRG 689 ==
LOC: ER 02:48 → EDBEDREQTM 13:58 → EDBEDREQ 13:58 → 6EST 15:03
PROVIDERS: ADMIT Internal Medicine; ATTEND Internal Medicine
PROC: 02HV33Z Insertion of Infusion Device into Superior Vena Cava, Percutaneous Approach (ICD-10-PCS; principal; 2023-04-20)
PROC: B548ZZA Ultrasonography of Superior Vena Cava, Guidance (ICD-10-PCS; 2023-04-20)
DX: N39.0 Urinary tract infection, site not specified (principal); E43 Unspecified severe protein-calorie malnutrition; N17.9 Acute kidney failure, unspecified; M48.061 Spinal stenosis, lumbar region without neurogenic claudication; E78.5 Hyperlipidemia, unspecified; I12.9 Hypertensive chronic kidney disease with stage 1 through stage 4 chronic kidney disease, or unspecified chronic kidney disease; F03.90 Unspecified dementia, unspecified severity, without behavioral disturbance, psychotic disturbance, mood disturbance, and anxiety; N18.9 Chronic kidney disease, unspecified; Z68.27 Body mass index [BMI] 27.0-27.9, adult; M16.12 Unilateral primary osteoarthritis, left hip; Z96.641 Presence of right artificial hip joint; B96.20 Unspecified Escherichia coli [E. coli] as the cause of diseases classified elsewhere; W19.XXXA Unspecified fall, initial encounter; D64.9 Anemia, unspecified; E03.9 Hypothyroidism, unspecified; Z88.0 Allergy status to penicillin; Z88.2 Allergy status to sulfonamides
CPT/HCPCS: 36415; 36573; 72131; 72170; 72192; 73700; 76770; 80048; 80053; 81003; 85025; 87186; 97116; 97162; 97530; 99285; C1725; C1893; J0696; J2185; J2270; J3490; J7060

== ENCOUNTER 2024-06-26 10:53 | Inpatient (IN) | payer BC, MEDICARE ==
[~2024-06-26] VITALS: Ht 160 cm; Wt 77.1 kg
[2024-06-26 12:34] LABS: CHLORIDE 107 mEq/L (98-107); SODIUM 142 mEq/L (136-145)
[2024-06-26 12:35] LABS: BASOPHILS % 0.9 % (0.0-2.0); CALCIUM 9.3 mg/dL (8.7-10.4); CARBON DIOXIDE 29 mEq/L (21-32); EOSINOPHILS % 1.7 % (0.0-5.0); HEMATOCRIT. 31.4 % (36.0-48.0); HEMOGLOBIN. 10.4 g/dL (12.0-16.0); LYMPHOCYTES % 13.9 % (20.0-50.0); MEAN CORPUSCULAR HEMOGLOBIN 30.6 pg (28.0-32.0); MEAN CORPUSCULAR HGB CONC 32.9 g/dL (31.0-37.0); MEAN PLATELET VOLUME 8.4 fl (7.4-10.4); NEUTROPHILS % 75.5 % (40.0-76.0); PLATELET 150 x1000/uL (130-400); RED BLOOD CELL COUNT 3.38 mill/uL (4.2-5.4); RED CELL DISTRIBUTION WIDTH 15.1 % (11.6-14.6); WHITE BLOOD COUNT 6.6 x1000/uL (4.5-11.0)
[2024-06-26 12:40] LABS: CREATININE 2.9 mg/dL (0.6-1.0); GLUCOSE 177 mg/dL (70-105); UREA NITROGEN BLOOD 68 mg/dL (9-23)
[2024-06-26 12:51] LABS: TROPONIN I HIGH SENSITIVITY 171 ng/L (3.0-34)
[2024-06-26] MEDS: ENOXAPARIN 80MG/0.8ML SYR SUBCUT ONE (13:32)
[2024-06-26] MEDS ORDERED: ENOXAPARIN 40MG/0.4ML SYR SUBCUT SCH (17:45)
[2024-06-26] MEDS ORDERED: ENOXAPARIN 30MG/0.3ML SYR SUBCUT SCH (18:00)
[2024-06-26] MEDS: METOPROLOL TARTRATE 25MG TABLET PO SCH (18:41)
[2024-06-26 20:00] VITALS: BP 132/70; PULSE 60; RESP 18; TEMP 36.16956; O2SAT 100
[2024-06-26] MEDS: ATORVASTATIN CALCIUM 20MG TABLET PO SCH (21:53)
[2024-06-27] VITALS (7 sets, daily range): BP systolic 105–144; BP diastolic 53–68; PULSE 59–70; RESP 18–20; TEMP 35.89176–36.5292; O2SAT 95–100
[2024-06-27 00:21] LABS: CREATINE KINASE MB FRACTION 4.5 ng/mL (0.5-3.6)
[2024-06-27] MEDS: LEVOTHYROXINE SODIUM 125MCG TABLET PO SCH (06:45)
[2024-06-27 08:16] LABS: EOSINOPHILS % 2.5 % (0.0-5.0); HEMATOCRIT. 35.6 % (36.0-48.0); HEMOGLOBIN. 11.2 g/dL (12.0-16.0); LYMPHOCYTES % 21.2 % (20.0-50.0); MEAN CORPUSCULAR HEMOGLOBIN 29.3 pg (28.0-32.0); MEAN CORPUSCULAR HGB CONC 31.5 g/dL (31.0-37.0); MEAN CORPUSCULAR VOLUME 93.2 fL (81.0-99.0); MEAN PLATELET VOLUME 8.8 fl (7.4-10.4); MONOCYTES % 9.1 % (2.0-8.0); NEUTROPHILS % 66.2 % (40.0-76.0); PLATELET 157 x1000/uL (130-400); RED BLOOD CELL COUNT 3.82 mill/uL (4.2-5.4); RED CELL DISTRIBUTION WIDTH 15.3 % (11.6-14.6)
[2024-06-27 08:23] LABS: POTASSIUM 4.3 mEq/L (3.5-5.1)
[2024-06-27 08:25] LABS: CALCIUM 9.7 mg/dL (8.7-10.4)
[2024-06-27 08:29] LABS: CREATININE 2.4 mg/dL (0.6-1.0)
[2024-06-27] MEDS ORDERED: ASPIRIN 81MG EC TABLET PO SCH (09:00)
[2024-06-27] MEDS: ASPIRIN 81MG EC TABLET PO SCH (10:03)
[2024-06-27] MEDS: METOPROLOL TARTRATE 25MG TABLET PO SCH (10:04)
[2024-06-27] MEDS: AMLODIPINE 10MG TABLET PO SCH (10:05)
[2024-06-27] MEDS: ENOXAPARIN 30MG/0.3ML SYR SUBCUT SCH (10:05)
[2024-06-27] MEDS: LORAZEPAM 0.5MG TABLET PO NR (13:21)
[2024-06-27] MEDS: METOPROLOL TARTRATE 50MG TABLET PO SCH (20:55)
[2024-06-28] VITALS: BP 141/57; PULSE 63; RESP 20; TEMP 35.89176; O2SAT 98
[2024-06-28 04:00] VITALS: BP 145/78; PULSE 83; RESP 19; TEMP 36.05844; O2SAT 100
[2024-06-28 08:00] VITALS: BP 134/66; PULSE 67; RESP 18; TEMP 36.3918; O2SAT 97
[2024-06-28 09:00] LABS: THYROID STIMULATING HORMONE 7.22 uIU/mL (0.55-4.78); VITAMIN B12 SERUM 1262 pg/mL (211-911)
[2024-06-28 12:00] VITALS: BP 138/59; PULSE 73; RESP 18; TEMP 36.55848; O2SAT 97
[2024-06-28 16:00] VITALS: BP 137/59; PULSE 79; RESP 18; TEMP 36.61404; O2SAT 97
[2024-06-28 20:00] VITALS: BP 143/68; PULSE 77; RESP 19; TEMP 36.00288; O2SAT 96
[2024-06-29] VITALS: BP 122/49; PULSE 67; RESP 19; TEMP 36.16956; O2SAT 97
[2024-06-29 04:00] VITALS: BP 153/62; PULSE 71; RESP 19; TEMP 36.16956; O2SAT 99
[2024-06-29 08:00] VITALS: BP 130/45; PULSE 70; RESP 18; TEMP 36.22512; O2SAT 97
[2024-06-29 12:00] VITALS: BP 148/57; PULSE 67; RESP 20; TEMP 36.3918; O2SAT 100
[2024-06-29] MEDS: ACETAMINOPHEN 325MG TABLET PO PRN (12:50)
[2024-06-29 16:00] VITALS: BP 138/53; PULSE 68; RESP 20; TEMP 36.50292; O2SAT 99
[2024-06-29 20:00] VITALS: BP 119/56; PULSE 63; RESP 19; TEMP 36.89184; O2SAT 100
[2024-06-30] VITALS: BP 144/54; PULSE 62; RESP 19; TEMP 36.6696; O2SAT 99
[2024-06-30 04:00] VITALS: BP 146/63; PULSE 65; RESP 19; TEMP 36.72516; O2SAT 99
[2024-06-30 06:42] LABS: BASOPHILS % 0.8 % (0.0-2.0); EOSINOPHILS % 2.7 % (0.0-5.0); HEMATOCRIT. 34.8 % (36.0-48.0); HEMOGLOBIN. 11.3 g/dL (12.0-16.0); LYMPHOCYTES % 22.1 % (20.0-50.0); MEAN CORPUSCULAR HEMOGLOBIN 30.2 pg (28.0-32.0); MEAN CORPUSCULAR HGB CONC 32.6 g/dL (31.0-37.0); MEAN CORPUSCULAR VOLUME 92.7 fL (81.0-99.0); MEAN PLATELET VOLUME 8.6 fl (7.4-10.4); NEUTROPHILS % 63.4 % (40.0-76.0); PLATELET 153 x1000/uL (130-400); RED BLOOD CELL COUNT 3.76 mill/uL (4.2-5.4); RED CELL DISTRIBUTION WIDTH 15.3 % (11.6-14.6); WHITE BLOOD COUNT 6.7 x1000/uL (4.5-11.0)
[2024-06-30 07:07] LABS: POTASSIUM 4.9 mEq/L (3.5-5.1)
[2024-06-30 07:08] LABS: CALCIUM 9.4 mg/dL (8.7-10.4)
[2024-06-30 07:11] LABS: CREATININE 2.3 mg/dL (0.6-1.0)
[2024-06-30 08:00] VITALS: BP 152/56; PULSE 69; RESP 18; TEMP 36.6696; O2SAT 97
[2024-06-30 12:00] VITALS: BP 138/61; PULSE 68; RESP 19; TEMP 36.3918; O2SAT 98
[2024-06-30] MEDS: SODIUM CHLORIDE 0.9% 1,000 ML IV SCH (12:02)
[2024-06-30 13:21] LABS: PROTHROMBIN TIME 11.1 sec (9.6-11.0)
[2024-06-30] MEDS ORDERED: DEXTROSE 50% WATER 50ML SYRINGE IV PRN (14:45)
[2024-06-30 16:00] VITALS: BP 119/56; PULSE 57; RESP 18; TEMP 36.3918; O2SAT 97
[2024-06-30] MEDS: BLOOD SUGAR DIAGNOSTIC STRIP TEST SCH (17:00)
[2024-06-30] MEDS: INSULIN LISPRO 100 UNITS/ML SUBCUT SCH (17:19)
[2024-06-30 20:00] VITALS: BP 124/54; PULSE 60; RESP 20; TEMP 36.55848; O2SAT 100
[2024-07-01 04:00] VITALS: BP 139/61; PULSE 66; RESP 20; TEMP 36.55848; O2SAT 99
[2024-07-01 08:00] VITALS: BP 139/62; PULSE 72; RESP 18; TEMP 36.6696; O2SAT 95
[2024-07-01 12:00] VITALS: BP 144/62; PULSE 74; RESP 19; TEMP 36.44736; O2SAT 96
[2024-07-01 16:00] VITALS: BP 127/54; PULSE 64; RESP 18; TEMP 37.00296; O2SAT 96; O2SAT 97
[2024-07-01 20:00] VITALS: BP 136/61; PULSE 70; RESP 19; TEMP 36.9474; O2SAT 100
[2024-07-02] VITALS: BP 119/45; PULSE 63; RESP 18; TEMP 36.72516; O2SAT 99
[2024-07-02 04:00] VITALS: BP 116/62; PULSE 67; RESP 18; TEMP 36.61404; O2SAT 98
[2024-07-02 08:00] VITALS: BP 141/49; PULSE 71; RESP 18; TEMP 36.28068; O2SAT 95
[2024-07-02 12:00] VITALS: BP 142/57; PULSE 64; RESP 18; TEMP 36.28068; O2SAT 96
[2024-07-02 16:00] VITALS: BP 148/60; PULSE 61; RESP 18; TEMP 36.28068; O2SAT 97
[2024-07-02 20:00] VITALS: BP 139/58; PULSE 66; RESP 18; TEMP 36.61404; O2SAT 100
[2024-07-03] VITALS: BP 121/58; PULSE 59; RESP 18; TEMP 36.78072; O2SAT 98
[2024-07-03 04:00] VITALS: BP 140/66; PULSE 64; RESP 18; TEMP 36.61404; O2SAT 100
[2024-07-03 09:00] VITALS: BP 150/53; PULSE 63; RESP 18; TEMP 36.33624; O2SAT 96
[2024-07-03 12:00] VITALS: BP 119/51; PULSE 66; RESP 18; TEMP 36.3918; O2SAT 96
[2024-07-03 16:00] VITALS: BP 136/61; PULSE 59; RESP 18; TEMP 36.33624; O2SAT 96
[2024-07-03 20:00] VITALS: BP 128/59; PULSE 64; RESP 17; TEMP 36.50292; O2SAT 97
[2024-07-04] VITALS: BP 130/64; PULSE 60; RESP 18; TEMP 36.50292; O2SAT 96
[2024-07-04 04:00] VITALS: BP 131/56; PULSE 71; RESP 16; TEMP 36.72516; O2SAT 96
[2024-07-04 07:56] VITALS: BP 114/77; PULSE 65; TEMP 97.8; O2SAT 97
== END 2024-07-04 08:14 | disposition home health service (06) | DRG 551 ==
LOC: ER 10:53 → 5WST 12:50 → EDBEDREQ 12:51 → EDBEDREQTM 12:51 → 7EST 06-27 09:41
PROVIDERS: ADMIT Internal Medicine; ATTEND Internal Medicine
PROC: 4A10X4Z Monitoring of Central Nervous Electrical Activity, External Approach (ICD-10-PCS; principal; 2024-07-01)
DX: M48.02 Spinal stenosis, cervical region (principal); G82.50 Quadriplegia, unspecified; I21.A1 Myocardial infarction type 2; N17.9 Acute kidney failure, unspecified; I47.20 Ventricular tachycardia, unspecified; I45.2 Bifascicular block; G99.2 Myelopathy in diseases classified elsewhere; M47.817 Spondylosis without myelopathy or radiculopathy, lumbosacral region; N18.9 Chronic kidney disease, unspecified; F03.90 Unspecified dementia, unspecified severity, without behavioral disturbance, psychotic disturbance, mood disturbance, and anxiety; R62.7 Adult failure to thrive; E11.22 Type 2 diabetes mellitus with diabetic chronic kidney disease; I12.9 Hypertensive chronic kidney disease with stage 1 through stage 4 chronic kidney disease, or unspecified chronic kidney disease; E11.65 Type 2 diabetes mellitus with hyperglycemia; M48.07 Spinal stenosis, lumbosacral region; I44.0 Atrioventricular block, first degree; Z53.20 Procedure and treatment not carried out because of patient's decision for unspecified reasons; Z88.0 Allergy status to penicillin; Z88.2 Allergy status to sulfonamides
CPT/HCPCS: 36415; 71045; 72141; 72148; 80048; 80061; 82550; 82553; 82607; 82962; 83036; 83880; 84134; 84443; 84484; 85025; 86850; 86900; 93005; 93306; 95816; 97162; 97166; 99285; J1650; J1815; J7030